=== PATIENT | male | born 1930 | race Caucasian/White ===

== ENCOUNTER → 2016-10-20 | Outpatient (CLI) | payer MEDICARE, OTHER ==
[~2016-10-20] MED LIST: ACET325T51 PO; ASPI-557 PO; DORZ10DR BOTH EYES; TRAV2.5D BOTH EYES
== END ==
LOC: NWCC 13:29
PROVIDERS: ATTEND Internal Medicine
DX: L89.323 Pressure ulcer of left buttock, stage 3 (principal); Z87.898 Personal history of other specified conditions; L53.9 Erythematous condition, unspecified; Z72.3 Lack of physical exercise
CPT/HCPCS: 11042; A6209; G0463

== ENCOUNTER → 2016-10-27 | Outpatient (CLI) | payer MEDICARE, OTHER ==
[~2016-10-27] MED LIST changes: +SALINE FLUSH 10ml SYRINGE IVF ONE
== END ==
LOC: NWCC 13:21
PROVIDERS: ATTEND Internal Medicine
DX: L89.322 Pressure ulcer of left buttock, stage 2 (principal); Z87.898 Personal history of other specified conditions; L53.9 Erythematous condition, unspecified
CPT/HCPCS: 11042; A6021; A6209

== ENCOUNTER → 2016-11-11 | Outpatient (CLI) | payer MEDICARE, OTHER ==
[~2016-11-11] MED LIST changes: -SALINE FLUSH 10ml SYRINGE IVF ONE
== END ==
LOC: NWCC 10:18
PROVIDERS: ATTEND Internal Medicine
DX: L89.323 Pressure ulcer of left buttock, stage 3 (principal); Z87.898 Personal history of other specified conditions; L53.9 Erythematous condition, unspecified

== ENCOUNTER 2017-03-04 13:45 | Inpatient (IN) ==
[2017-03-04] MEDS ORDERED: NS 1,000 ML IV ONE (14:01)
[2017-03-04] MEDS: SALINE FLUSH 10ml SYRINGE IVF PRN ×2 (14:10→20:08)
--- NOTE | 2017-03-04 14:52 | Emergency Department Report ---
General Adult HPI - General Chief complaint: Weakness Stated complaint: weakness Time Seen by Provider: 03/04/17 14:01 - History of Present Illness HPI narrative: 86-year-old gentleman with onset of weakness over the past several days. Patient has had difficulty swallowing, according to his . She is very hard of hearing, which makes medication little bit difficult. But she is very concerned about a possible reaction to Bactrim which she was prescribed 3 weeks ago for his pyelonephritis. They stopped the medication 8 days ago when this prescription ran out. And there was no reaction at that time. However the last 3 or 4 days she feels like he has had increased difficulty swallowing especially liquids. He seems to eat food okay but has been choking on water or milk. She actually gave him watermelon to try and get him to swallow liquids. He is blind in his left eye and mostly blind in the right eye, has had difficulty ambulating over the last 2 weeks, with increased weakness. The patient does interact and answer questions, he has no trouble hearing. In fact conversation's are quite lucid with him. He denies any pain, does not know if she's had a change in strength in the last couple of days, but does feel like over the last 2 weeks she's become more weak. It does not hurt to swallow, but he does choke sometimes when he swallows. This is also a new development over the last couple of weeks. - Related Data Home Medications Medication Instructions Recorded Confirmed Travoprost 0.004% Eye Drops 1 drop BOTH EYES HS #0 08/04/10 03/04/17 [Travatan Z] Dorzolamide Eye Drops [Trusopt] 1 drop BOTH EYES BID #0 11/26/14 03/04/17 Aspirin [Aspir 81] 81 mg PO DAILY #30 tab 10/19/16 03/04/17 Brimonidine Tartrate [Alphagan P] 1 drop RIGHT EYE BID 03/04/17 03/04/17 acetaZOLAMIDE [Diamox Sequels] 500 mg PO DAILY 03/04/17 03/04/17 Allergies Allergy/AdvReac Type Severity Reaction Status Date / Time NKDA Allergy Unknown Uncoded 03/04/17 14:07 Review of Systems All systems: reviewed and negative except as stated [facility] Medical History Updates: Medical history reviewed please see intake note. Surgical History: Surgical history reviewed please see intake note Family History: Positive for hypertension. - Social History Smoking status: Never smoker Substance use type: does not use Alcohol intake frequency: does not drink Current residence: Independent Living Physical Exam See below for normal exam. Patient has significant abnormal exam as well. HEENT-left eye week, this is chronic, since . Eyelid closed on left and patient does not see out of that eye. Right eye shows sluggish but appropriate dilation, with extraocular movement intact. Throat is slightly red posterior, no plaques or signs of infection. Patient denies any pain in the throat or with swallowing. Lungs-bibasilar crackles Cardiovascular-regular rate and rhythm Neuro-cranial nerves are intact with the exception of the ability to move the left eyelid which is a chronic issue. Patient is able to shrug shoulders lift arms, sales and customer relations rep strength, lift legs all with equal bilateral strength. Sensory is intact in all 4 extremities. - Limitations Limitations: other (patient is blind but can hear, is deaf but can see.) - General General appearance: alert, lethargic - Normal Exams: Cardiovascular:: Regular rate and rhythm, without murmur or gallop, Pulses 2+ all extremities Abdomen:: Bowel sounds positive, soft, non-tender, non-distended, no hepatosplenomegaly, masses or bruits noted Course Vital Signs Temperature 99.1 F 03/04/17 13:50 Pulse Rate 96 03/04/17 13:50 Respiratory Rate 24 03/04/17 13:50 Blood Pressure 150/76 H 03/04/17 13:50 Pulse Oximetry 97 03/04/17 13:50 Temperature 99.1 F 03/04/17 13:50 Pulse Rate 85 03/04/17 16:38 Respiratory Rate 24 03/04/17 13:50 Blood Pressure 124/57 03/04/17 15:56 Pulse Oximetry 100 03/04/17 15:56 Medical Decision Making - [facility] Narrative Medical decision making narrative: Labs are reviewed, CT is reviewed. CT head is negative, chest x-ray does not show any acute changes. Urine does not show any acute infection, he is currently under treatment with Bactrim DS twice daily. White count is elevated at 13.9 with left shift. Lactate is 2.1, pro calcitonin is 0.05. BNP is elevated at 1050, a UA is elevated at 32 and sodium is elevated at 155. Creatinine is normal at 0.9 Patient was given 500 ML bolus of normal saline while being evaluated in the emergency department. His home situation is not stable for him at this moment due to his illness, and he has a significant hypernatremia of 155. I expected defined and acutely septic situation and ordered blood cultures, but have not been able to document sepsis at this time. Currently, he has a significant diagnosis of hypernatremia, dehydration, dysphagia, congestive heart failure, leukocytosis, and likely continued UTI despite normal UA. Hospitalist was consulted and accepted admission of patient. - Medical Records Medical records reviewed: Yes: I reviewed the patient's medical records. - Lab Data Lab results reviewed: Yes: I reviewed the patient's lab results. Result diagrams: 03/04/17 14:46 03/04/17 14:53 Lab Results 03/04/17 03/04/17 03/04/17 Range/Units 14:46 14:46 14:53 WBC 13.9 H (4.5-11.0) T/MM3 RBC 4.62 (4.50-5.90) M/MM3 Hgb 15.3 (13.5-17.5) GM/DL Hct 47.3 (41-53) % MCV 102.4 H (80-100) UM3 MCH 33.1 (26-34) UUG MCHC 32.3 (31-37) GM/DL RDW Std Deviation 54.1 H (36.9-50.2) FL Plt Count 209 (130-400) T/MM3 MPV 9.4 (9.4-12.4) UM3 Immature Gran % (Auto) 0.4 (0.0-0.5) % Neut % (Auto) 80.2 H (33-66) % Lymph % (Auto) 10.4 L (23-45) % Burnett % (Auto) 8.2 (0-9.0) % Eos % (Auto) 0.6 (0-4) % Baso % (Auto) 0.2 (0-2) % Neut # 11.1 H (1.8-7.7) T/MM3 Lymph # 1.5 (1-4.8) T/MM3 Burnett # 1.1 H (0-0.8) T/MM3 Eos # 0.1 (0-0.5) T/MM3 Baso # 0.0 (0-0.2) T/MM3 Abs Immat Gran (auto) 0.06 H (0.00-0.03) T/MM3 INR 1.13 (0.99-1.21) Turbidity < 20 (0-20) Sodium 155 H (134-144) MEQ/L Potassium 3.9 (3.6-5) MEQ/L Chloride 113 H (98-107) MEQ/L Carbon Dioxide 29 (22-30) MEQ/L Anion Gap 13 (5-15) MEQ/L BUN 32.0 H (9-20) MG/DL Creatinine 0.9 (0.8-1.5) MG/DL GFR Calculation 80 BUN/Creatinine Ratio 36 H (6-26) RATIO Glucose 110 (75-110) MG/DL Calculated Osmolality 305 H (261-280) MOSM/KG Calcium 9.8 (8.4-10.2) MG/DL Total Bilirubin 1.40 H (0.20-1.30) MG/DL Icterus Index < 2 (0-7) AST 22 (17-59) U/L ALT 34 (21-72) U/L Alkaline Phosphatase 83 (38-126) U/L B-Natriuretic Peptide 1050 H (0-175) pg/mL Total Protein 7.2 (6.3-8.2) G/DL Albumin 4.1 (3.5-5.0) G/DL Globulin 3.1 (2.4-3.6) G/DL Albumin/Globulin Ratio 1.3 (1.1-2.2) RATIO Plasma Lactate 2.1 (0.6-2.2) MMOL/L Procalcitonin NG/ML Specimen Hemolysis < 15 (0-25) Ur Collection Type Urine Color (YELLOW) Urine Clarity Urine pH (5.0-8.0) Ur Specific [place] (1.015-1.025) Urine Protein (NEGATIVE) Urine Glucose (UA) (NEGATIVE) Urine Ketones (NEGATIVE) Urine Occult Blood (NEGATIVE) Urine Nitrate (NEGATIVE) Urine Bilirubin (NEGATIVE) Urine Urobilinogen (NORMAL) EU/DL Ur Leukocyte Esterase (NEGATIVE) Urinalysis Comment 03/04/17 03/04/17 Range/Units 14:53 15:51 WBC (4.5-11.0) T/MM3 RBC (4.50-5.90) M/MM3 Hgb (13.5-17.5) GM/DL Hct (41-53) % MCV (80-100) UM3 MCH (26-34) UUG MCHC (31-37) GM/DL RDW Std Deviation (36.9-50.2) FL Plt Count (130-400) T/MM3 MPV (9.4-12.4) UM3 Immature Gran % (Auto) (0.0-0.5) % Neut % (Auto) (33-66) % Lymph % (Auto) (23-45) % Burnett % (Auto) (0-9.0) % Eos % (Auto) (0-4) % Baso % (Auto) (0-2) % Neut # (1.8-7.7) T/MM3 Lymph # (1-4.8) T/MM3 Burnett # (0-0.8) T/MM3 Eos # (0-0.5) T/MM3 Baso # (0-0.2) T/MM3 Abs Immat Gran (auto) (0.00-0.03) T/MM3 INR (0.99-1.21) Turbidity (0-20) Sodium (134-144) MEQ/L Potassium (3.6-5) MEQ/L Chloride (98-107) MEQ/L Carbon Dioxide (22-30) MEQ/L Anion Gap (5-15) MEQ/L BUN (9-20) MG/DL Creatinine (0.8-1.5) MG/DL GFR Calculation BUN/Creatinine Ratio (6-26) RATIO Glucose (75-110) MG/DL Calculated Osmolality (261-280) MOSM/KG Calcium (8.4-10.2) MG/DL Total Bilirubin (0.20-1.30) MG/DL Icterus Index (0-7) AST (17-59) U/L ALT (21-72) U/L Alkaline Phosphatase (38-126) U/L B-Natriuretic Peptide (0-175) pg/mL Total Protein (6.3-8.2) G/DL Albumin (3.5-5.0) G/DL Globulin (2.4-3.6) G/DL Albumin/Globulin Ratio (1.1-2.2) RATIO Plasma Lactate (0.6-2.2) MMOL/L Procalcitonin < 0.05 NG/ML Specimen Hemolysis (0-25) Ur Collection Type Urine, catheter Urine Color Yellow (YELLOW) Urine Clarity Sl cloudy Urine pH 5.5 (5.0-8.0) Ur Specific [place] 1.025 (1.015-1.025) Urine Protein Negative (NEGATIVE) Urine Glucose (UA) Negative (NEGATIVE) Urine Ketones Negative (NEGATIVE) Urine Occult Blood Trace-intact (NEGATIVE) Urine Nitrate Negative (NEGATIVE) Urine Bilirubin 1+ A (NEGATIVE) Urine Urobilinogen 1.0 (NORMAL) EU/DL Ur Leukocyte Esterase Negative (NEGATIVE) Urinalysis Comment Microscopic not ind. - Radiology Data Radiology results reviewed: Yes: I reviewed the patient's radiology results. Disposition Clinical Impression: Dehydration, Leukocytosis, Hypernatremia, Congestive heart failure, Dysphasia Disposition: Discharged Home, Self-Care Condition: Stable Prescriptions: No Action Travoprost 0.004% Eye Drops [Travatan Z] 1 drop BOTH EYES HS #0 Brimonidine Tartrate [Alphagan P] 1 drop RIGHT EYE BID Dorzolamide Eye Drops [Trusopt] 1 drop BOTH EYES BID #0 Aspirin [Aspir 81] 81 mg PO DAILY #30 tab acetaZOLAMIDE [Diamox Sequels] 500 mg PO DAILY Referrals: Nick Persaud II, MD [Family Provider] - Time of Disposition: 16:47 - Seen By: physician
--- NOTE | 2017-03-04 14:55 | CT Scan Report ---
Indication: weakness PROCEDURE: CT head/brain wo con: Encounter: Initial Comparison: February 10, 2015 Technique: Axial CT images through the head were performed without contrast. Iterative Reconstruction dose reducing technique was utilized. FINDINGS: The ventricles are of normal size, shape, and contour for the patient's age. There are scattered areas of low attenuation in the white matter which most likely represent changes from chronic microvascular ischemia. The brainstem, cerebellum, and cerebral hemispheres otherwise have a normal morphology and CT attenuation. There is no evidence of midline displacement. No hemorrhage, signs of acute territorial stroke, mass effect, mass lesions, or edema is evident. The visualized portions of the skull base, midface, and calvarium demonstrate no abnormality. The paranasal sinuses are well aerated and free of significant disease. The tympanic and mastoid cavities appear normal. IMPRESSION: No acute intracranial abnormality or hemorrhage. .
--- NOTE | 2017-03-04 15:03 | XRay Report ---
INDICATION: weakness PROCEDURE: CHEST 2-VIEWS UPRIGHT (PA & LAT) Encounter: Initial COMPARISON: November 21, 2015 FINDINGS: The lungs are clear without evidence of focal abnormal airspace opacity. There is no pleural effusion or pneumothorax. The heart size, mediastinal contours and pulmonary vascularity are stable. Chronic appearing mid thoracic compression deformity. Old left posterior rib fractures. IMPRESSION: Stable chest without acute cardiopulmonary disease. .
[2017-03-04] MEDS ORDERED: D5-1/2NS 1,000 ML IV SCH (16:15)
--- NOTE | 2017-03-04 16:39 | History & Physical Report ---
<LibanDavina D - Last Filed: 03/04/17 16:35> History of Present Illness Date: 03/04/17 Chief complaint: Weakness, reduced oral intake HPI: "Sanjeev Barboza is an 86 y/o male who lives at home with his . He has had a sudden decrease in his appetite x1 week, and his reports that the only thing that he has consistently eaten is jello and watermelon. When he swallows, it's as if the food gets caught in his throat. He has become so weak that he can barely get up anymore. No recent weight loss. They both deny any falls or trauma. She states that he's had some mild underlying confusion x3 years but it hasn't been worse recently. He has poor circulation but no swelling or leg pain. On January 25, 2017, he was treated with Bactrim x14 days for a UTI (no culture); then following this Dr. Cabrera put him on a course of Diamox for increased eye pressures. Mrs. Barboza called the office and Diamox was discontinued several days ago. Jeff denies recent fever or chills, cough, congestion, dizziness, paresthesias, or unilateral weakness. He denies chest pain or SOA. He [place] to [facility] [place]. Labs showed a markedly elevated sodium at 155. CT head was unremarkable. He also had leukocytosis with WBC of 13.9. Lactate was elevated without a clear source of infection. Renal function was intact. He received 1L NS in the ED, and the hospitalist service was contacted for inpatient admission. Review of Systems Comprehensive ROS: completed and no additional positive findings except those as stated - Constitutional Constitutional: Present: as per HPI, anorexia. Absent: weight loss - EENMT Eyes: Present: loss of vision Mouth/Throat: Present: as per HPI, changes in swallowing - Cardiovascular Cardiovascular: Absent: chest pain, edema Vascular: Present: see HPI. Absent: pedal edema, unilateral swelling - Respiratory Respiratory: Absent: cough, dyspnea - Gastrointestinal Gastrointestinal: Absent: abdominal pain, change in bowel habits, constipation, diarrhea, nausea, vomiting - Genitourinary Genitourinary: Present: as per HPI (recent UTI). Absent: dysuria - Musculoskeletal Musculoskeletal: Present: as per HPI, muscle weakness - Neurological Neurological: Present: confusion (baseline), loss of vision (chronic). 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 Poe. B/L cataract extractions. Appendectomy at age 17. 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 Persaud Uro - Dr. Poe Eye - Dr. Cabrera Medications Home Medications Medication Instructions Recorded Confirmed Type Travoprost 0.004% Eye Drops 1 drop BOTH EYES HS #0 08/04/10 03/04/17 History [Travatan Z] Dorzolamide Eye Drops [Trusopt] 1 drop BOTH EYES BID #0 11/26/14 03/04/17 History Aspirin [Aspir 81] 81 mg PO DAILY #30 tab 10/19/16 03/04/17 History Brimonidine Tartrate [Alphagan P] 1 drop RIGHT EYE BID 03/04/17 03/04/17 History acetaZOLAMIDE [Diamox Sequels] 500 mg PO DAILY 03/04/17 03/04/17 History Allergies Allergy/AdvReac Type Severity Reaction Status Date / Time No Known Drug Allergies Allergy Unknown Verified 03/04/17 17:49 Exam Vital Signs: Temperature 99.1 F 03/04/17 13:50 Pulse Rate 81 03/04/17 15:56 Respiratory Rate 24 03/04/17 13:50 Blood Pressure 124/57 03/04/17 15:56 Pulse Oximetry 100 03/04/17 15:56 Oxygen Delivery Method Room Air Height/Weight/BMI: Height 1.6 m Weight 48.3 kg - Constitutional Present: mild distress, thin, cachectic, other (temporal wasting) - Routine HEENT Exam Head: Present: normocephalic ENT: Present: mucous membranes dry (extremely dry). Absent: dentition normal ( dentures - top) - Routine Neck Exam Absent: full ROM (prefers to keep neck in extension), lymphadenopathy, swelling - Routine Respiratory Exam Present: CTA bilaterally Comments: ribs are prominent - Routine Cardiovascular Exam Present: RRR, S1, S2 - Routine Abdominal Exam Present: soft, normoactive bowel sounds, non distended, non tender - Routine Extremities Exam Present: no edema, pulses intact. Absent: tenderness Comments: toenails are thickened; no hair on both lower legs/feet; hammertoes on both feet - Routine Skin Exam Present: dry, pallor, rash (rosacea to face). Absent: normal turgor (+skin tenting) - Routine Neurological Exam Present: alert, oriented X3, motor deficit (left hand weakness; difficulty with coordination on left foot/LE; very weak in general), facial asymmetry, normal speech. Absent: CN II-XII intact (loss of right nasolabial fold, tongue deviates to the right; left eye ptosis - chronic; pupils are aniscoric which is chronic), vision grossly intact - Routine Psychiatric Exam Present: normal affect, normal thought process, cooperative Results - Labs CBC & Chem 7: 03/04/17 14:46 03/04/17 14:53 Microbiology Results: Microbiology 03/04/17 15:51 Urine, Cath Straight Urine Culture - Preliminary Culture Initiated - Results Pending 03/04/17 14:47 Peripheral/Iv Start Blood Culture - Preliminary Culture Initiated - Results Pending 03/04/17 14:53 Peripheral/Iv Start Blood Culture - Preliminary Culture Initiated - Results Pending - Imaging and Cardiology Chest x-ray Status: image reviewed by me (no infiltrates, failure, or effusions. 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 Recently with positive PHQ -[address] Persaud's records. BPH Rosacea gait abnormality - at risk for falls Plan Admit to inpatient status for hypernatremia, dysphagia - LOS to exceed 2 overnights for IV hydration and prevention of further electrolyte abnormalities ; speech, PT, OT eval. Start D5 1/2 NS at 125 mL/hr for hypernatremia and dehydration. Monitor daily weights and ins/outs. Repeat BMP tonight. Consult speech therapy d/t dysphagia. When strength improves, consult PT/OT. Hx of gait instability. Consider checking lipids, echo and carotid dopplers. Continue ASA (once cleared by speech therapy). Leukocytosis and elevated lactate without clear source of infection. Possibly secondary to dehydration. Procalcitonin was normal. He does have 3 SIRS criteria , which could be explained by dehydration. qSOFA was positive for tachypnea (1/3 ). Repeat lactate, follow BC. Will hold off on abx for now. Macrocytosis - check B12 and folate levels. Suspect hgb is falsely elevated d/t hemoconcentration. Check TSH and prealbumin due to cachexia. Code status - DNR. PCP - Dr. Persaud. Plan was discussed and formulated with Dr. Tobias. - Time spent with patient 25 - 35 minutes Hospital Course Summary Disclaimer: The visit summary below is not to be considered part of the above Progress Note. Hospital Course: 03/04/17 ADMIT - start D5 1/2 NS; consult speech therapy. MRI brain ordered. Additional labs ordered. 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) gait abnormality - at risk for falls Hx of TIA; PVD; Gout; Depression; BPH; Rosacea <Fay Tobias - Last Filed: 03/04/17 18:51> History of Present Illness Date: 03/04/17 Exam Vital Signs: Temperature 97.3 F 03/04/17 17:01 Pulse Rate 80 03/04/17 17:01 Respiratory Rate 28 H 03/04/17 17:01 Blood Pressure 133/60 03/04/17 17:01 Pulse Oximetry 100 03/04/17 17:01 Oxygen Delivery Method Room Air Height/Weight/BMI: Weight 49 kg Results - Labs CBC & Chem 7: 03/04/17 14:46 03/04/17 14:53 Assessment and Plan (1) Hypernatremia Current visit: Yes Status: Acute Assessment and Plan: 03/04/2017-I reviewed this chart, the patient history, and the MAINTENANCE AND ENGINEERING MANAGER's/PA's documented findings as above. We discussed and formulated the assessment and plan as above with the additions below.-Dr. Tobias Patient was seen in his room accompanied by his . History is obtained both from the and patient. He apparently started on Diamox about 20 some days ago for increased eye pressures. The patient's stated he has not been eating or drinking well for at least the past 4 days and she called his eye doctor who stopped his Diamox. He would also had a 2 week course of Bactrim for UTI starting about 3 weeks ago. They describe that he has some difficulty with swallowing and things getting stuck in his throat. He denies any neck pain or throat pain. He occasionally has a cough but none now. He denies any headache, chest pain or abdominal pain. He denies any pain anywhere. He denies any nausea or vomiting. He has not had any diarrhea. He feels weak all over but denies any specific area of focal weakness. He is legally blind and has ptosis of the left eye which is chronic. His weight was 121 pounds one month ago and now is 108 pounds. The patient's thought he used to weigh 140 pounds. His face appears flushed but his states that is normal. Lying down he has his neck somewhat arched backward but his states that is normal. He denies any neck pain. On exam the patient is alert and in no acute distress. He is thin with temporal wasting. HEENT reveals right eye ptosis. Left eye is mildly injected. Oropharynx is very dry and he has upper dentures with whitish discharge seen especially in the tissue around the dentures. His states they have not used any cream for his dentures today. Patient denies any oral pain except for his tong. His tongue is very dry. Neck is somewhat stiff but he can move it [id number] and denies any pain. Chest is clear to auscultation anteriorly. Cardiovascular reveals a regular rate and rhythm. Abdomen is scaphoid, soft and nontender. Extremities are free of edema. Skin is warm and dry. Face is flushed but otherwise he has no erythema or rashes. CT head and chest x-ray were reviewed. Lab work was reviewed BNP is normal for age. TSH and prealbumin are pending. Sodium is 155. BUN is 32 which is elevated and creatinine is 0.9 which is likely high for his low muscle mass. Impression Dehydration with elevated sodium, likely secondary to poor by mouth intake. Because of poor by mouth intake is uncertain but could be secondary to recent medication versus acute stroke versus other. Probable acute kidney injury Plan Patient was given 1 L of normal saline in the ER. Give D5 half-normal now and recheck a sodium later tonight. The patient had a borderline elevated lactate but no signs or symptoms of infection at this time. We'll recheck a lactate and continue to monitor for signs or symptoms of infection. White count is elevated but without significant immature granulocytes. Chest x-ray and UA are negative. Vital signs are okay. MRI will be obtained to rule out acute stroke. If the patient does have a stroke will likely need further workup. Consult speech therapy to evaluate swallow. Nothing by mouth for now. Recheck CBC and basic metabolic profile tomorrow. Adjust fluids as needed. Hospital Course Summary Disclaimer: The visit summary below is not to be considered part of the above Progress Note.
--- NOTE | 2017-03-04 19:24 | Magnetic Resonance Report ---
Indication: poss stroke PROCEDURE: MR head/brain wo con: Encounter: Initial Comparisons: Head CT from today Technique: Multiplanar, multisequence, MR imaging of the head without contrast was acquired. FINDINGS: There is a tiny 4 mm focus of apparent diffusion restriction along the periventricular right posterior frontal lobe seen only on axial diffusion-weighted image #14. This lesion is not seen on the T2 or FLAIR sequences due to slice selection and slice thickness so it cannot be definitively confirmed. Motion artifact also somewhat limited the exam. The ventricles are of normal size, shape, and contour for the patient's age. There are small nonspecific punctate areas of T2-weighted and T2 FLAIR weighted signal abnormality in the deep frontoparietal white matter that most likely represent small vessel ischemic disease. This is of a degree that is considered to be normal for the patient's age. The brain stem, cerebellum, and cerebral hemispheres otherwise have a normal morphologic appearance as well as MR signal intensity on all pulse sequences. There is no evidence of an intracranial mass lesion, intracranial hemorrhage, or hydrocephalus. The visualized portions of the orbits, calvarium, paranasal sinuses, and skull base demonstrate no significant abnormality. IMPRESSION: Subtle evidence for a tiny 4 mm area of acute infarct in the periventricular right posterior frontal lobe in the MCA territory. .
[2017-03-04] MEDS: EYE RIGHT EYE SCH (20:07)
[2017-03-04] MEDS: BRIMONIDINE 0.15% RIGHT EYE SCH (20:07)
[2017-03-04] MEDS: DORZOLAMIDE 2% EYE DROPS 10ml RIGHT EYE SCH (20:07)
[2017-03-04] MEDS: TRAVOPROST 0.004% EYE DROPS 2.5ml RIGHT EYE SCH (20:07)
[2017-03-04] MEDS: D5-1/2NS with KCL 20mEq 1,000 ML IV SCH (22:48)
[2017-03-05] MEDS: D5-1/2NS with KCL 20mEq 1,000 ML IV SCH (07:36)
[2017-03-05] MEDS: EYE RIGHT EYE SCH ×2 (08:52→22:39)
[2017-03-05] MEDS: BRIMONIDINE 0.15% RIGHT EYE SCH ×2 (08:52→22:39)
[2017-03-05] MEDS: DORZOLAMIDE 2% EYE DROPS 10ml RIGHT EYE SCH ×2 (08:52→21:05)
--- NOTE | 2017-03-05 09:41 | Progress Note ---
<Davina Louie - Last Filed: 03/05/17 09:37> Subjective: Jeff was awake this morning, seen during a bed bath. He denies any acute complaints. He denies feeling short of breath or having any pain. He states he slept well last night. He still is very weak. I asked him if he could roll over on his side to facilitate listening to his lungs and evaluating his previously documented coccygeal ulcers, but he was unable to do it without assistance. Furthermore, his body was very rigid during this process. Objective Vital signs: Temperature 97.5 F 03/05/17 07:50 Pulse Rate 78 03/05/17 07:50 Respiratory Rate 14 03/05/17 07:50 Blood Pressure 138/67 03/05/17 07:50 Pulse Oximetry 98 03/05/17 07:50 Oxygen Delivery Method Room Air Height/Weight/BMI: Height 1.6 m Weight 50.3 kg Body Mass Index 19.1 - Constitutional Present: thin, cachectic - Routine HEENT Exam Eye: Absent: scleral injection ENT: Present: mucous membranes dry (very dry) - Routine Respiratory Exam Present: CTA bilaterally, diminished air movement - Routine Cardiovascular Exam Present: RRR, S1, S2 - Routine Abdominal Exam Present: soft, non distended, non tender. Absent: normoactive bowel sounds ( hypoactive) - Routine Exam Scrotal: Absent: swelling Comments: He has a couple areas of coccygeal skin breakdown. There is 1 pressure ulcer that is at least stage II, and another larger one that is stage I. - Routine Extremities Exam Present: cyanosis (mild cyanosis of both lower extremities, this was also noted and Dr. Persaud's office notes), no edema, pulses intact - Routine Back/Spine/Pelvis Exam Comments: He seems to prefer neck extension. His entire body is very rigid. He was unable to roll himself to his right side without assistance. - Routine Musculoskeletal Exam Musculoskeletal: Present: contractures (hammertoe deformities to bilateral feet) , limited range of motion - Routine Skin Exam Present: dry, warm, wounds - Routine Neurological Exam Present: alert, oriented X3 right facial droop not as noticeable today (though was mild yesterday) chronic left eye ptosis - Routine Psychiatric Exam Present: normal affect, cooperative Results - Labs CBC & Chem 7: 03/05/17 05:07 03/05/17 05:07 Assessment and Plan (1) Hypernatremia Current visit: Yes Status: Acute DVT Prophylaxis: SCD's Resuscitation Status: Do Not Resuscitate Assessment and Plan: Assessment Severe dehydration with hypernatremia, POA (Na 155) Elevated lactate, infection is not suspected - resolved Leukocytosis; macrocytosis Hypokalemia, not POA Prerenal azotemia Dysphagia Coccygeal pressure ulcers, POA Weakness, generalized Hyperbilirubinemia, mild, POA Mild PCM, prealbumin 13 Weight loss >10% of body weight - at [facility] on 01/25/17 he weighed 121 lbs. On admission here, he was 106 lbs. 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 Currently down to 152. Potassium decreased with hydration, and the telehospitalist added potassium to IV fluids. K has improved to 3.4. Clinically still looks markedly dry. If his rigidity does not improve, consider neurologic consultation. Awaiting speech therapy recommendations. Also, would recommend dietary consultation, once we know what his safest diet will be. He has mild protein calorie malnutrition. Prerenal azotemia is improving with hydration. Bilirubin actually increased slightly to 1.6. Lactate has trended down to normal, and there continues to be no evidence of infection. White count is trending down and he remains afebrile. MRI brain was obtained, and this shows a subtle irregularity that could be a small stroke to the right MCA territory, but the exam is limited by motion artifact, and this abnormality could not be confirmed on alternate images. TSH was normal at 1.10. Vitamin B12 and folate are still pending. Consult wound team for recommendations on treatment for his coccygeal pressure ulcers. Sepsis Assessment - Evaluation Sepsis screening result: No Definite Risk Hospital Course Summary Disclaimer: The visit summary below is not to be considered part of the above Progress Note. Hospital Course: 03/04/17 ADMIT - start D5 1/2 NS; consult speech therapy. MRI brain ordered. Additional labs ordered. 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 Potassium decreased with hydration, and the telehospitalist added potassium to IV fluids. K has improved to 3.4. Clinically still looks markedly dry. If his rigidity does not improve, consider neurologic consultation. Awaiting speech therapy recommendations. Also, would recommend dietary consultation, once we know what his safest diet will be. He has mild protein calorie malnutrition. Prerenal azotemia is improving with hydration. Bilirubin actually increased slightly to 1.6. Lactate has trended down to normal. MRI brain was obtained, and this shows a subtle irregularity that could be a small stroke to the right MCA territory, but the exam is limited by motion artifact, and this abnormality could not be confirmed on alternate images. TSH was normal at 1.10. Consult wound team for recommendations on treatment for his coccygeal pressure ulcers. <Fay Tobias - Last Filed: 03/05/17 14:09> Objective Vital signs: Temperature 97.5 F 03/05/17 07:50 Pulse Rate 78 03/05/17 07:50 Respiratory Rate 14 03/05/17 07:50 Blood Pressure 138/67 03/05/17 07:50 Pulse Oximetry 98 03/05/17 07:50 Oxygen Delivery Method Room Air Height/Weight/BMI: Height 1.6 m Weight 50.3 kg Body Mass Index 19.1 Results - Labs CBC & Chem 7: 03/05/17 05:07 03/05/17 05:07 Assessment and Plan (1) Hypernatremia Current visit: Yes Status: Acute Assessment and Plan: 03/05/2017-I reviewed this chart, the patient history, and the OLEOMARGARINE MAKER's/PA's documented findings as above. We discussed and formulated the assessment and plan as above with the additions below.-Dr. Tobias I saw the patient in his room earlier today. His was not present at that time, that had been in the room earlier today per the nurse. I attempted to call the patient's at home and there was no answer. The patient was sleeping on my arrival but awoke easily. He denies any pain. He denies shortness of breath. He denies any cough. He denies any complaints other than feeling hungry. On exam he appears somewhat confused. He still appears dry. He kept both of his eyes closed during my exam. Oropharynx is dry with thick white coating in the posterior pharynx. Neck is somewhat rigid but is able to move it side to side. Chest is clear to auscultation. Cardiovascular reveals a regular rate and rhythm. Abdomen is scaphoid, soft and nontender. Extremities reveal no edema. Lab work was reviewed and shows improvement in sodium and potassium since last night. Regarding the patient's severe dysphagia, speech therapy did see the patient and recommended nothing by mouth except when the patient wanted to try Magic cup. Because of prolonged time without adequate nutrition, will start PPN. I was not able to contact the patient's to discuss placing a PICC line and starting TPN. The patient refused to try Dobbhoff for GI feedings. Regarding severe weakness, will check phosphorus and magnesium. Regarding weakness and stiffness, if not improved will consult neurology. The cause of the patient's severe dysphagia is not known at this time. There is a very small subtle area seen on one view on MRI that could be an acute stroke. Other possible causes could be his dehydration, and/or hypernatremia. Other possibility is previously undiagnosed Parkinson's versus myasthenia gravis versus other. Hospital Course Summary Disclaimer: The visit summary below is not to be considered part of the above Progress Note. Addendum entered and electronically signed by Davina Louie APRN 03/05/17 12: 22: Speech therapy evaluated Jeff. He has profound oropharyngeal dysphagia and NPO diet is recommended. She recommends an alternate nutrition source at this time. I also reevaluated his mouth after oral cares - he has erythemic mucous membranes with thick white secretions vs. thrush. Will start Nystatin - nursing will brush it in his mouth QID.
[2017-03-05] MEDS: NYSTATIN 500,000 units/5 ml ORAL LIQUID PO SCH ×4 (12:17→21:36)
[2017-03-05] MEDS ORDERED: POTASSIUM PHOSPHATE IV SCH (15:15)
[2017-03-05] MEDS ORDERED: POTASSIUM ACETATE IV SCH (15:15)
[2017-03-05] MEDS ORDERED: [UNRECOGNIZED DRUG - OTHER] IV SCH (15:15)
--- NOTE | 2017-03-05 15:29 | Pharmacy Consult-TPN/PPN ---
Pharmacy Consult-TPN/PPN - Laboratory Information Chemistry Turbidity < 20 (0-20) 03/05/17 05:07 Sodium 150 MEQ/L (134-144) H 03/05/17 05:07 Potassium 3.4 MEQ/L (3.6-5) L 03/05/17 05:07 Chloride 111 MEQ/L (98-107) H 03/05/17 05:07 Carbon Dioxide 29 MEQ/L (22-30) 03/05/17 05:07 Anion Gap 10 MEQ/L (5-15) 03/05/17 05:07 BUN 19.0 MG/DL (9-20) 03/05/17 05:07 Creatinine 0.7 MG/DL (0.8-1.5) L 03/05/17 05:07 GFR Calculation 107 03/05/17 05:07 BUN/Creatinine Ratio 27 RATIO (6-26) H 03/05/17 05:07 Glucose 130 MG/DL (75-110) H 03/05/17 05:07 Calculated Osmolality 292 MOSM/KG (261-280) H 03/05/17 05:07 Calcium 8.7 MG/DL (8.4-10.2) 03/05/17 05:07 Phosphorus 2.7 MG/DL (2.5-4.5) 03/05/17 05:07 Magnesium 2.2 MG/DL (1.6-2.3) 03/05/17 05:07 Total Bilirubin 1.60 MG/DL (0.20-1.30) H 03/05/17 05:07 Icterus Index < 2 (0-7) 03/05/17 05:07 AST 23 U/L (17-59) 03/05/17 05:07 ALT 27 U/L (21-72) 03/05/17 05:07 Alkaline Phosphatase 70 U/L (38-126) 03/05/17 05:07 B-Natriuretic Peptide 1050 pg/mL (0-175) H 03/04/17 14:53 Total Protein 6.4 G/DL (6.3-8.2) 03/05/17 05:07 Albumin 3.5 G/DL (3.5-5.0) 03/05/17 05:07 Globulin 2.9 G/DL (2.4-3.6) 03/05/17 05:07 Albumin/Globulin Ratio 1.2 RATIO (1.1-2.2) 03/05/17 05:07 Prealbumin 13.0 MG/DL (17.6-36.0) L 03/04/17 18:20 Plasma Lactate 1.4 MMOL/L (0.6-2.2) 03/04/17 18:20 Procalcitonin < 0.05 NG/ML 03/04/17 14:53 TSH 1.10 MIU/L (0.47-4.68) 03/04/17 18:20 Specimen Hemolysis < 15 (0-25) 03/05/17 05:07 Intake and Output 03/04/17 03/05/17 03/06/17 06:59 06:59 06:59 Intake Total 477.083 / 1477.083 880 / 880 Balance 477.083 / 1477.083 880 / 880 Weight 49 kg 50.3 kg Intake: IV 477.083 / 477.083 880 / 880 D5-1/2NS with KCL 20mEq 1 880 / 880 ,000 ML @ 100 mls/hr IV . Q10H [facility] Rx#:[id number] D5-1/2Ns 1,000 ml @ 125 477.083 / 477.083 mls/hr IV .Q8H [facility] Rx#: [id number] Oral 0 / 0 Other: # Incontinent Voids 1 1 I have reviewed the patient's labs and I will start a PPN with NO sodium and NO chloride. I will use Potassium Acetate and Potassium Phosphate to supplement the potassium. The pharmacy will continue to monitor the nutritional needs of the patient and adjust the PPN as needed. I also ordered Fat 20% 500 ml per the pharmacy PPN Protocol. Thank you for the Protocol, Walt York [facility]
[2017-03-05] MEDS ORDERED: FAT EMULSION 20% 500 ML IV SCH (16:00)
[2017-03-05] MEDS ORDERED: FAT EMULSION 20% 500 ML BAG IV SCH (16:00)
[2017-03-05] MEDS: TRAVOPROST 0.004% EYE DROPS 2.5ml RIGHT EYE SCH (21:36)
[2017-03-06] MEDS: D5-1/2NS with KCL 20mEq 1,000 ML IV SCH (03:53)
[2017-03-06] MEDS: DORZOLAMIDE 2% EYE DROPS 10ml RIGHT EYE SCH ×2 (09:12→21:18)
[2017-03-06] MEDS: EYE RIGHT EYE SCH ×2 (09:12→21:17)
[2017-03-06] MEDS: NYSTATIN 500,000 units/5 ml ORAL LIQUID PO SCH ×4 (09:12→21:19)
[2017-03-06] MEDS: BRIMONIDINE 0.15% RIGHT EYE SCH ×2 (09:12→21:17)
--- NOTE | 2017-03-06 12:42 | Progress Note ---
<Alma Snyder - Last Filed: 03/06/17 12:37> Subjective: Reuben is seen today in follow up. He is asleep throughout my exam. His is on phone in restroom, so I was unable to visit with her. Information had to be obtained from the chart. Objective Vital signs: Temperature 98.1 F 03/06/17 07:47 Pulse Rate 88 03/06/17 08:00 Respiratory Rate 18 03/06/17 07:47 Blood Pressure 151/72 H 03/06/17 07:47 Pulse Oximetry 95 03/06/17 07:47 Oxygen Delivery Method Room Air Height/Weight/BMI: Height 1.6 m Weight 50.6 kg Body Mass Index 19.1 - Constitutional Present: no acute distress, thin, somnolent Comments: He sleeps through the exam. His head is in extended "sniffing" position while he is sleeping. - Routine HEENT Exam ENT: Present: mucous membranes dry Comments: Sleeping with mouth open - Routine Respiratory Exam Present: decreased breath sounds, CTA bilaterally, distant breath sounds ( Shallow respirations. not SOA. No appreciable crackles or wheezes. ) - Routine Cardiovascular Exam Present: RRR, S1, S2, no murmur - Routine Abdominal Exam Present: soft, non distended, non tender - Routine Extremities Exam Present: non tender. Absent: full ROM - Routine Back/Spine/Pelvis Exam Back/Spine: Absent: full ROM Comments: Patient remains stiffened, with neck extended. I did not attempt to move pt during exam. - Routine Skin Exam Present: intact, dry, warm Comments: Noted report of coccyx wounds. I was unable to assess. - Routine Neurological Exam Present: altered mental status, clonus. Absent: alert, oriented X3, CN II-XII intact, motor deficit, normal tone - Routine Psychiatric Exam Present: unable to assess. 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 Hx of TIA; PVD; Gout; Depression; BPH; Rosacea Plan: Patient continues to have altered mental status, rigidity. If persists, consider neurology consult in AM- undiagnosed Parkinson's? Stiff Person syndrome? Unable to tolerate PO, so unable to start baclofen or Sinemet for trial. Given persistent leukocytosis, I am going to start empiric Ceftriaxone. He is not acutely febrile, so less likely systemic infection or acute viral encephalopathy. Could consider spinal tap, but does not explain systemic rigidity. Family did not want to pursue TF, so PPN ongoing right now. Continue eye gtts for chronic vision concerns. Possible small stroke on MRI, but somewhat limited exam. Could consider rectal ASA if family desires more aggressive care. Repeat labs in AM for stability. Chart is reviewed for collateral information. - Time spent with patient 25 - 35 minutes Sepsis Assessment - Evaluation Sepsis screening result: No Definite Risk Hospital Course Summary Disclaimer: The visit summary below is not to be considered part of the above Progress Note. Hospital Course: 03/04/17 ADMIT - start D5 1/2 NS; consult speech therapy. MRI brain ordered. Additional labs ordered. 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 Potassium decreased with hydration, and the telehospitalist added potassium to IV fluids. K has improved to 3.4. Clinically still looks markedly dry. If his rigidity does not improve, consider neurologic consultation. Awaiting speech therapy recommendations. Also, would recommend dietary consultation, once we know what his safest diet will be. He has mild protein calorie malnutrition. Prerenal azotemia is improving with hydration. Bilirubin actually increased slightly to 1.6. Lactate has trended down to normal. MRI brain was obtained, and this shows a subtle irregularity that could be a small stroke to the right MCA territory, but the exam is limited by motion artifact, and this abnormality could not be confirmed on alternate images. TSH was normal at 1.10. Consult wound team for recommendations on treatment for his coccygeal pressure ulcers. 03/06/17 13:03 Patient continues to have altered mental status, rigidity. If persists, consider neurology consult in AM- undiagnosed Parkinson's? Stiff Person syndrome? Unable to tolerate PO, so unable to start baclofen or Sinemet for trial. Given persistent leukocytosis, I am going to start empiric Ceftriaxone. He is not acutely febrile, so less likely systemic infection or acute viral encephalopathy. Could consider spinal tap, but does not explain systemic rigidity. Family did not want to pursue TF, so PPN ongoing right now. Continue eye gtts for chronic vision concerns. Possible small stroke on MRI, but somewhat limited exam. Could consider rectal ASA if family desires more aggressive care. Repeat labs in AM for stability. Chart is reviewed for collateral information. <JatinderFay L - Last Filed: 03/07/17 07:47> Objective Vital signs: Temperature 98.7 F 03/07/17 07:00 Pulse Rate 99 03/07/17 07:00 Respiratory Rate 18 03/07/17 07:00 Blood Pressure 168/73 H 03/07/17 07:00 Pulse Oximetry 100 03/07/17 07:00 Oxygen Delivery Method Room Air Height/Weight/BMI: Height 1.6 m Weight 52.3 kg Body Mass Index 19.1 Results - Labs CBC & Chem 7: 03/07/17 04:37 03/07/17 04:37 Assessment and Plan (1) Hypernatremia Current visit: Yes Status: Acute Assessment and Plan: 03/07/2017- late entry from yesterday. I reviewed this chart, the patient history, and the TAPING MACHINE OPERATOR's/PA's documented findings as above. We discussed and formulated the assessment and plan as above with the additions below. I did see the patient yesterday accompanied by his and jose alfredo and his . The patient had his eyes closed while we talked but he was able to open his right eye on command. He has chronic left eye ptosis. He denies any pain. He specifically denies headache, neck pain and chest pain. He denies nausea. He denies shortness of breath. Voice is somewhat difficult to understand. He is still not able to eat or drink because of severe dysphagia. He has a wet sounding voice. On exam he is alert. He follows commands. He thinks he is in his living room. HEENT reveals phlegm in the back of his throat. Oropharynx is moist. He is able to move his head side to side neck is somewhat stiff. Chest is clear to auscultation bilaterally Cardiovascular reveals a regular rate and rhythm Abdomen is scaphoid, soft and nontender. Lower extremities have SCDs and he'll protectors bilaterally. He is able to move his legs on command. He is able to move his arms and hands on command. Lab was reviewed Discussed at length with the patient's and jose alfredo's . Unfortunately, the patient does not appear to be improving significantly with rehydration and normalization of his sodium. PICC line was placed and TPN was started. The cause of the patient's dysphagia, chronic sleepiness, and worsening weakness over the past 3 weeks is not known at this time. There is an equivocal lesion on MRI that could be a small acute stroke. Other possibilities include end- stage dementia versus Parkinson's versus myasthenia versus other. Will consult Dr. Villa on Tuesday. Discussed possibility of PEG tube if the patient does not improve significantly with his ability to swallow. If family decides against PEG tube, then would need to consider hospice/comfort care. Hospital Course Summary Disclaimer: The visit summary below is not to be considered part of the above Progress Note.
--- NOTE | 2017-03-06 13:11 | Pharmacy Consult-TPN/PPN ---
Pharmacy Consult-TPN/PPN - Laboratory Information Chemistry Turbidity < 20 (0-20) 03/06/17 04:36 Sodium 141 MEQ/L (134-144) D 03/06/17 04:36 Potassium 3.6 MEQ/L (3.6-5) 03/06/17 04:36 Chloride 102 MEQ/L (98-107) D 03/06/17 04:36 Carbon Dioxide 29 MEQ/L (22-30) 03/06/17 04:36 Anion Gap 10 MEQ/L (5-15) 03/06/17 04:36 BUN 17.0 MG/DL (9-20) 03/06/17 04:36 Creatinine 0.6 MG/DL (0.8-1.5) L 03/06/17 04:36 GFR Calculation 128 03/06/17 04:36 BUN/Creatinine Ratio 28 RATIO (6-26) H 03/06/17 04:36 Glucose 134 MG/DL (75-110) H 03/06/17 04:36 Glucometer 178 mg/dL (65-110) 03/06/17 05:36 Calculated Osmolality 275 MOSM/KG (261-280) 03/06/17 04:36 Calcium 8.6 MG/DL (8.4-10.2) 03/06/17 04:36 Phosphorus 2.7 MG/DL (2.5-4.5) 03/06/17 04:36 Magnesium 2.2 MG/DL (1.6-2.3) 03/05/17 05:07 Total Bilirubin 1.60 MG/DL (0.20-1.30) H 03/05/17 05:07 Icterus Index < 2 (0-7) 03/06/17 04:36 AST 23 U/L (17-59) 03/05/17 05:07 ALT 27 U/L (21-72) 03/05/17 05:07 Alkaline Phosphatase 70 U/L (38-126) 03/05/17 05:07 B-Natriuretic Peptide 1050 pg/mL (0-175) H 03/04/17 14:53 Total Protein 6.4 G/DL (6.3-8.2) 03/05/17 05:07 Albumin 3.6 G/DL (3.5-5.0) 03/06/17 04:36 Globulin 2.9 G/DL (2.4-3.6) 03/05/17 05:07 Albumin/Globulin Ratio 1.2 RATIO (1.1-2.2) 03/05/17 05:07 Prealbumin 13.0 MG/DL (17.6-36.0) L 03/04/17 18:20 Plasma Lactate 1.4 MMOL/L (0.6-2.2) 03/04/17 18:20 Procalcitonin < 0.05 NG/ML 03/04/17 14:53 TSH 1.10 MIU/L (0.47-4.68) 03/04/17 18:20 Specimen Hemolysis 50 (0-25) H 03/06/17 04:36 Intake and Output 03/05/17 03/06/17 03/07/17 06:59 06:59 06:59 Intake Total 477.083 / 0243.966 3705.67 / 1771.67 1237.333 / 1237.333 Output Total 100 / 100 50 / 50 Balance 477.083 / 6763.599 3279.67 / 1671.67 1187.333 / 1187.333 Weight 49 kg 50.3 kg 50.6 kg Intake: IV 477.083 / 883.488 1095.67 / 1771.67 1237.333 / 1237.333 D5-1/2NS with KCL 20mEq 1 1771.67 / 1771.67 ,000 ML @ 100 mls/hr IV . Q10H [facility] Rx#:[id number] D5-1/2Ns 1,000 ml @ 125 477.083 / 477.083 mls/hr IV .Q8H [facility] Rx#: [id number] Potassium Acetate Inj 40 1237.333 / 1237.333 Meq/20 ml K Phos Inj 40 Meq Magnesium Sulfate Inj 10 Meq Calcium Gluconate 9.3 Meq Infuvite Adult 10 ml Multi-Trace Elements 1 ml In Ppn - Custom Formula 2,000 ml @ 80 mls/hr IV .Q24H [facility] Rx#:[id number] Oral 0 / 0 Output: Urine 100 / 100 50 / 50 Other: # Incontinent Voids 1 1 1 - Consult Information PICC line placed today. Will convert to a standard TPN with bag change at 1600. Will add extra 50meq of potassium acetate as per previous formula. Will continue to monitor. Thank you.
[2017-03-06] MEDS: CEFTRIAXONE 1 G in NS 100 ML IV SCH (14:10)
[2017-03-06] MEDS: NS FLUSH BAG 500ml IV PRN (14:10)
[2017-03-06] MEDS ORDERED: ACETAMINOPHEN 325 MG SUPPOSITORY PR PRN (15:00)
[2017-03-06] MEDS ORDERED: ACETAMINOPHEN 650 MG SUPPOSITORY PR PRN (15:01)
[2017-03-06] MEDS: FLUCONAZOLE PB 100 MG/50 ML BAG IV SCH (15:28)
[2017-03-06] MEDS: ASPIRIN 300 MG RECTAL SUPPOSITORY RECTALLY SCH (15:28)
[2017-03-06] MEDS ORDERED: [UNRECOGNIZED DRUG - OTHER] IV SCH (16:15)
[2017-03-06] MEDS ORDERED: MULTI VIT INFUSION IV SCH (16:15)
[2017-03-06] MEDS ORDERED: MULTI TRACE ELEMENTS IV SCH (16:15)
[2017-03-06] MEDS ORDERED: POTASSIUM ACETATE IV SCH (16:15)
[2017-03-06] MEDS: FAT EMULSION 20% 100 ML IV SCH (16:43)
[2017-03-06] MEDS: MULTI VIT INFUSION IV SCH (16:43)
[2017-03-06] MEDS: POTASSIUM ACETATE IV SCH (16:43)
[2017-03-06] MEDS: [UNRECOGNIZED DRUG - OTHER] IV SCH (16:43)
[2017-03-06] MEDS: MULTI TRACE ELEMENTS IV SCH (16:43)
[2017-03-06] MEDS: TRAVOPROST 0.004% EYE DROPS 2.5ml RIGHT EYE SCH (21:18)
--- NOTE | 2017-03-07 08:45 | Pharmacy Consult-TPN/PPN ---
Pharmacy Consult-TPN/PPN - Laboratory Information Chemistry Turbidity < 20 (0-20) 03/07/17 04:37 Sodium 138 MEQ/L (134-144) 03/07/17 04:37 Potassium 3.8 MEQ/L (3.6-5) 03/07/17 04:37 Chloride 102 MEQ/L (98-107) 03/07/17 04:37 Carbon Dioxide 29 MEQ/L (22-30) 03/07/17 04:37 Anion Gap 7 MEQ/L (5-15) 03/07/17 04:37 BUN 21.0 MG/DL (9-20) H 03/07/17 04:37 Creatinine 0.6 MG/DL (0.8-1.5) L 03/07/17 04:37 GFR Calculation 128 03/07/17 04:37 BUN/Creatinine Ratio 35 RATIO (6-26) H 03/07/17 04:37 Glucose 118 MG/DL (75-110) H 03/07/17 04:37 Glucometer 142 mg/dL (65-110) 03/07/17 06:05 Calculated Osmolality 270 MOSM/KG (261-280) 03/07/17 04:37 Calcium 8.4 MG/DL (8.4-10.2) 03/07/17 04:37 Phosphorus 3.0 MG/DL (2.5-4.5) 03/07/17 04:37 Magnesium 2.1 MG/DL (1.6-2.3) 03/07/17 04:37 Total Bilirubin 1.60 MG/DL (0.20-1.30) H 03/05/17 05:07 Icterus Index < 2 (0-7) 03/07/17 04:37 AST 23 U/L (17-59) 03/05/17 05:07 ALT 27 U/L (21-72) 03/05/17 05:07 Alkaline Phosphatase 70 U/L (38-126) 03/05/17 05:07 B-Natriuretic Peptide 1050 pg/mL (0-175) H 03/04/17 14:53 Total Protein 6.4 G/DL (6.3-8.2) 03/05/17 05:07 Albumin 3.3 G/DL (3.5-5.0) L 03/07/17 04:37 Globulin 2.9 G/DL (2.4-3.6) 03/05/17 05:07 Albumin/Globulin Ratio 1.2 RATIO (1.1-2.2) 03/05/17 05:07 Prealbumin 13.0 MG/DL (17.6-36.0) L 03/04/17 18:20 Plasma Lactate 1.4 MMOL/L (0.6-2.2) 03/04/17 18:20 Vitamin B12 815 PG/ML (239-931) 03/05/17 05:07 Folate 10.2 NG/ML (2.76-20) 03/05/17 05:07 Procalcitonin < 0.05 NG/ML 03/04/17 14:53 TSH 1.10 MIU/L (0.47-4.68) 03/04/17 18:20 Specimen Hemolysis < 15 (0-25) 03/07/17 04:37 Intake and Output 03/06/17 03/07/17 03/08/17 06:59 06:59 06:59 Intake Total 1771.67 / 1771.67 1757.9989 / 1757.9989 Output Total 100 / 100 150 / 150 Balance 1671.67 / 1671.67 1607.9989 / 1607.9989 Weight 50.3 kg 50.6 kg 52.3 kg Intake: IV 1771.67 / 1771.67 1757.9989 / 1757.9989 Rocephin 1 G In Normal 100 / 100 Saline 100 ml @ 200 mls/ hr IV Q24H [facility] Rx#: [id number] D5-1/2NS with KCL 20mEq 1 1771.67 / 1771.67 ,000 ML @ 100 mls/hr IV . Q10H [facility] Rx#:[id number] Intralipid 20% 100 ml @ 100 / 100 50 mls/hr IV 1600 [facility] Rx# :[id number] DIFLUCAN PREMIX 100 mg In 50 / 50 50 ml @ 50 mls/hr IV Q24H [facility] Rx#:[id number] Potassium Acetate Inj 40 1507.9989 / 1507.9989 Meq/20 ml K Phos Inj 40 Meq Magnesium Sulfate Inj 10 Meq Calcium Gluconate 9.3 Meq Infuvite Adult 10 ml Multi-Trace Elements 1 ml In Ppn - Custom Formula 2,000 ml @ 80 mls/hr IV .Q24H [facility] Rx#:[id number] Oral 0 / 0 Output: Urine 100 / 100 150 / 150 Other: # Incontinent Voids 1 1 - Consult Information Continue current formula of TPN at 70 mls/hr. Will continue to monitor. Thank you.
[2017-03-07] MEDS: EYE RIGHT EYE SCH ×2 (09:56→22:04)
[2017-03-07] MEDS: BRIMONIDINE 0.15% RIGHT EYE SCH ×2 (09:56→22:04)
[2017-03-07] MEDS: NYSTATIN 500,000 units/5 ml ORAL LIQUID PO SCH ×4 (09:57→22:03)
[2017-03-07] MEDS: DORZOLAMIDE 2% EYE DROPS 10ml RIGHT EYE SCH ×2 (09:57→22:04)
--- NOTE | 2017-03-07 11:02 | Progress Note ---
<Davina Louie - Last Filed: 03/07/17 10:59> Subjective: Jeff was sitting in bedside chair. He mostly kept his eyes closed for conversation, but answered questions. He states he still feels very weak. He understands that he hasn't been able to swallow safely. He denies having any pain anywhere. He states that he hasn't yet worked with PT. he was not completely oriented this morning. When asked where he was, he replied "at an appointment". I had a hard time understanding his speech. When I asked him to tell me what city he was in, but finally was able to decipher [place]. He was unable to state the year. This nurse reports that he has been oriented to person and place every day except today. He has not been able to answer the year previously. Objective Vital signs: Temperature 98.7 F 03/07/17 07:00 Pulse Rate 88 03/07/17 07:50 Respiratory Rate 18 03/07/17 07:00 Blood Pressure 168/73 H 03/07/17 07:00 Pulse Oximetry 100 03/07/17 07:00 Oxygen Delivery Method Room Air Height/Weight/BMI: Height 1.6 m Weight 52.3 kg Body Mass Index 19.1 - Constitutional Present: no acute distress, thin - Routine HEENT Exam ENT: Present: mucous membranes moist. Absent: oropharynx clear (thick white colored phlegm on the roof of his mouth and posterior pharynx. This was suctioned by nursing staff.), dentition normal - Routine Respiratory Exam Present: decreased breath sounds - Routine Cardiovascular Exam Present: RRR, S1, S2 - Routine Abdominal Exam Present: soft, normoactive bowel sounds, non distended, non tender - Routine Extremities Exam Present: no edema, pulses intact - Routine Skin Exam Present: intact, erythema (to face), dry, warm - Routine Neurological Exam Present: alert. Absent: normal tone (continues to be rigid, very weak, but this is equal bilaterally.) - Routine Psychiatric Exam Present: cooperative. Absent: normal affect Results - Labs CBC & Chem 7: 03/07/17 04:37 03/07/17 04:37 Assessment and Plan (1) Hypernatremia Current visit: Yes Status: Resolved DVT Prophylaxis: SCD's GI Prophylaxis: Protonix Resuscitation Status: Do Not Resuscitate Assessment and Plan: Impression Severe dehydration with hypernatremia, POA - resolved Elevated lactate, infection is not suspected. Leukocytosis; macrocytosis. Rocephin started on 03/06/17. 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 Continue TPN through PICC. Suction oral cavity PRN. Start Protonix IV. Anticipate evaluation by Dr. Villa today. Discussed options for ongoing care with Jeff's . She is not sure if a feeding tube is the way to go, though doesn't know if she's ready for hospice ( this all came on so suddenly). Continue Rocephin day #2 for persistent leukocytosis. Blood and urine cultures remain negative after 2 days. Sepsis Assessment - Evaluation Sepsis screening result: No Definite Risk Hospital Course Summary Disclaimer: The visit summary below is not to be considered part of the above Progress Note. Hospital Course: 03/04/17 ADMIT - start D5 1/2 NS; consult speech therapy. MRI brain ordered. Additional labs ordered. 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 Potassium decreased with hydration, and the telehospitalist added potassium to IV fluids. K has improved to 3.4. Clinically still looks markedly dry. If his rigidity does not improve, consider neurologic consultation. Awaiting speech therapy recommendations. Also, would recommend dietary consultation, once we know what his safest diet will be. He has mild protein calorie malnutrition. Prerenal azotemia is improving with hydration. Bilirubin actually increased slightly to 1.6. Lactate has trended down to normal. MRI brain was obtained, and this shows a subtle irregularity that could be a small stroke to the right MCA territory, but the exam is limited by motion artifact, and this abnormality could not be confirmed on alternate images. TSH was normal at 1.10. Consult wound team for recommendations on treatment for his coccygeal pressure ulcers. 03/06/17 Patient continues to have altered mental status, rigidity. Given persistent leukocytosis, I am going to start empiric Ceftriaxone. He is not acutely febrile, so less likely systemic infection or acute viral encephalopathy. PICC line was placed and TPN was started. Possible small stroke on MRI, but somewhat limited exam. Could consider rectal ASA if family desires more aggressive care. 03/07/17 Dehydration and electrolyte abnormalities have resolved, the patient continues to have profound dysphagia and weakness. Continue TPN through PICC. Suction oral cavity PRN. Start Protonix IV. Anticipate evaluation by Dr. Villa today. Discussed options for ongoing care with Jeff's . She is not sure if a feeding tube is the way to go, though doesn't know if she's ready for hospice ( this all came on so suddenly). Continue Rocephin day #2 for persistent leukocytosis. Blood and urine cultures remain negative after 2 days. <Fay Tobias - Last Filed: 03/07/17 18:08> Objective Vital signs: Temperature 98.2 F 03/07/17 16:29 Pulse Rate 83 03/07/17 16:29 Respiratory Rate 18 03/07/17 16:29 Blood Pressure 131/69 03/07/17 16:29 Pulse Oximetry 96 03/07/17 16:29 Oxygen Delivery Method Room Air Height/Weight/BMI: Height 1.6 m Weight 52.163 kg Body Mass Index 20.3 Results - Labs CBC & Chem 7: 03/07/17 04:37 03/07/17 04:37 Assessment and Plan (1) Hypernatremia Current visit: Yes Status: Resolved Assessment and Plan: 03/07/2017-I reviewed this chart, the patient history, and the HOME SERVICE DIRECTOR's/PA's documented findings as above. We discussed and formulated the assessment and plan as above with the additions below.-Dr. Tobias The patient was seen earlier this morning and then again this afternoon. His was present this afternoon. This morning, the patient was more alert and had his eyes open. Speech was more intelligible. He was able to follow commands a little more easily today. He denied any pain. He denied shortness of breath. He denied nausea. He stated he did feel hungry. On exam he was more alert with right eye wide open and left eye open a little bit. Oropharynx revealed phlegm in the back of his throat and some white patches on his pharynx. He was able to move his neck on command. Chest is clear anteriorly. Cardiovascular reveals a regular rate and rhythm. Abdomen is soft and nontender. Extremities are free of edema. Lab shows improvement in sodium and hydration appears to be improved. Discussed with Dr. Villa today. He recommends Mestinon 1 mg IV every 8 and see if this helps with strengthening. He stated the small ischemic stroke seen on MRI is not related to his dysphagia. He recommends continuing fluids and nutrition at this point and seeing if the patient improves with Mestinon. I did return and talk with the patient's and discussed plans with her. She is in agreement at this time. Continue Rocephin for now regarding mildly elevated white count and possible occult infection. Repeat chest x-ray tomorrow. Repeat lab work tomorrow. Continue PT and OT. Hospital Course Summary Disclaimer: The visit summary below is not to be considered part of the above Progress Note.
[2017-03-07] MEDS: ASPIRIN 300 MG RECTAL SUPPOSITORY RECTALLY SCH (11:35)
[2017-03-07] MEDS ORDERED: PYRIDOSTIGMINE 10 MG/2 ML IV SCH ×2 (12:00→13:58)
[2017-03-07] MEDS: PANTOPRAZOLE 40 MG INJECTION IVP SCH (12:14)
[2017-03-07] MEDS: CEFTRIAXONE 1 G in NS 100 ML IV SCH (12:44)
[2017-03-07] MEDS: PYRIDOSTIGMINE 10 MG/2 ML IV SCH ×2 (14:52→23:05)
[2017-03-07] MEDS: FLUCONAZOLE PB 100 MG/50 ML BAG IV SCH (15:01)
[2017-03-07 15:28] VITALS: BMI 20.3
--- NOTE | 2017-03-07 15:30 | Consultation ---
DATE OF CONSULTATION 03/07/[address] Tobias PATIENT'S CHIEF COMPLAINT Generalized weakness and dysphagia. 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 The patient was started on acetazolamide on 02/03/2017. This had to be stopped after 10 days due to increased symptoms of fatigue and dysphagia and ill feeling problem. The patient had problem with ambulation and dysphagia which limited his ability to eat food. His was giving him some pureed food and milkshake to get his nutrition. He was able to use a walker for ambulation prior to this and now he is becoming bedridden. On admission, patient had a CT of the head that showed no acute abnormalities. He then had an MRI of the brain that showed a possible new small vessel ischemic stroke in the right periventricular white matter area. His lab work workup showed elevated white count without any particular signs of sepsis or infection. This can be related to his dehydration. His chemistry lab showed a very elevated sodium level which has been gradually improving since admission. Patient's condition is slightly better as per . He continued to have moderate weakness in all extremities. He was not allowed to swallow or eat per orally as per speech pathology recommendations. He has been getting TPN nutrition. 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 Patient had no symptoms of fatigue or focal weakness prior to the event prior to him being on acetazolamide. Patient had no previous history of stroke as per . PHYSICAL EXAMINATION The patient was awake, alert. He was able to answer simple questions. He was able to follow one to two step commands. He was able to open his eyes to command and squeeze fingers and move extremities to command. His speech was slow and clear. He was able to have a fair swallow effort. He had difficulty moving his tongue out of his mouth and blowing his cheeks. His motor examination in the upper extremities was in the 4-4+/5, in the lower extremities was in the 4- to 4/5. Sensory examination was symmetrical for light touch, pinprick and vibration sensation. Deep tendon reflexes were 2-/4. Plantar reflexes were equivocal bilaterally. ASSESSMENT 1. Generalized weakness, dysphagia and fatigue. This can be associated with the dehydration caused by the usage of acetazolamide. 2. Small vessel acute ischemic stroke with no particular focal neurological deficit on examination. 3. We cannot rule out chronic dementia which made the patient vulnerable for decompensation and weakness. Some of his symptoms of dementia can be pseudobulbar palsy and pseudobulbar effect. PLAN 1. Continue the usage of aspirin suppositories for stroke prevention. Start patient on Mestinon IV infusion 1 mg q.8h. This can be changed to oral medication if the patient's situation improves. This can help the patient's weakness and dementia symptoms. 2. Continue the treatment for dehydration and rule out any possible sepsis causing the white count to be elevated. 3. Physical and occupational therapy and possible rehab admission for improving motor skills and ambulatory functioning. RIAN
[2017-03-07] MEDS: POTASSIUM ACETATE IV SCH (16:29)
[2017-03-07] MEDS: [UNRECOGNIZED DRUG - OTHER] IV SCH (16:29)
[2017-03-07] MEDS: MULTI TRACE ELEMENTS IV SCH (16:29)
[2017-03-07] MEDS: MULTI VIT INFUSION IV SCH (16:29)
[2017-03-07] MEDS: FAT EMULSION 20% 100 ML IV SCH (16:29)
[2017-03-07] MEDS: TRAVOPROST 0.004% EYE DROPS 2.5ml RIGHT EYE SCH (22:04)
[2017-03-07] MEDS: ENOXAPARIN 30 MG/0.3 ML INJECTION SQ SCH (22:04)
[2017-03-07] MEDS: SALINE FLUSH 10ml SYRINGE IVF PRN (22:05)
[2017-03-08] MEDS: SALINE FLUSH 10ml SYRINGE IVF PRN ×6 (04:12→21:47)
[2017-03-08] MEDS: PYRIDOSTIGMINE 10 MG/2 ML IV SCH ×3 (06:22→21:47)
--- NOTE | 2017-03-08 08:44 | XRay Report ---
Indication: cough, elevated wbc PROCEDURE: XR chest 1V: Encounter: Initial Comparison: March 04, 2017 Findings: PICC line in place with the tip projecting over the lower SVC. The lungs are stable in appearance without new focal airspace consolidation. There is no pleural effusion or pneumothorax. The heart size, pulmonary vascularity and mediastinal contours are unchanged. IMPRESSION: New left PICC line, otherwise stable appearance of the chest. .
[2017-03-08] MEDS: PANTOPRAZOLE 40 MG INJECTION IVP SCH (08:47)
[2017-03-08] MEDS: DORZOLAMIDE 2% EYE DROPS 10ml RIGHT EYE SCH ×2 (08:48→21:30)
[2017-03-08] MEDS: BRIMONIDINE 0.15% RIGHT EYE SCH ×2 (08:48→20:41)
[2017-03-08] MEDS: EYE RIGHT EYE SCH ×2 (08:48→20:41)
[2017-03-08] MEDS: ENOXAPARIN 30 MG/0.3 ML INJECTION SQ SCH (08:48)
[2017-03-08] MEDS: ASPIRIN 300 MG RECTAL SUPPOSITORY RECTALLY SCH (08:49)
[2017-03-08] MEDS: NYSTATIN 500,000 units/5 ml ORAL LIQUID PO SCH ×4 (08:49→21:31)
[2017-03-08] MEDS: THIAMINE 200mg/2ml INJECTION IVP SCH ×2 (08:56→10:42)
--- NOTE | 2017-03-08 09:27 | Wound Care Progress Note ---
Wound Management - Patient Status Premedicated Prior to Dressing Change: No - Wound Left Sacrum Wound Type: Pressure Injury Wound Staging: Stage II (Pt is know to this clinic for this pressure injury) Length: 1 Width: 1.5 Depth: 0.1 Wound Bed Appearance: Darwin Tasha Wound Appearance: Darwin Tunneling: No Undermining: No Drainage Description: Serous Drainage Amount: Scant Drainage Odor: No Odor Dressing Status: Changed
--- NOTE | 2017-03-08 09:41 | Pharmacy Consult-TPN/PPN ---
Pharmacy Consult-TPN/PPN - Laboratory Information Chemistry Turbidity < 20 (0-20) 03/08/17 04:27 Sodium 136 MEQ/L (134-144) 03/08/17 04:27 Potassium 4.4 MEQ/L (3.6-5) 03/08/17 04:27 Chloride 101 MEQ/L (98-107) 03/08/17 04:27 Carbon Dioxide 30 MEQ/L (22-30) 03/08/17 04:27 Anion Gap 5 MEQ/L (5-15) 03/08/17 04:27 BUN 21.0 MG/DL (9-20) H 03/08/17 04:27 Creatinine 0.6 MG/DL (0.8-1.5) L 03/08/17 04:27 GFR Calculation 128 03/08/17 04:27 BUN/Creatinine Ratio 35 RATIO (6-26) H 03/08/17 04:27 Glucose 92 MG/DL (75-110) 03/08/17 04:27 Glucometer 150 mg/dL (65-110) 03/08/17 06:05 Calculated Osmolality 265 MOSM/KG (261-280) 03/08/17 04:27 Calcium 8.6 MG/DL (8.4-10.2) 03/08/17 04:27 Phosphorus 3.3 MG/DL (2.5-4.5) 03/08/17 04:27 Magnesium 2.3 MG/DL (1.6-2.3) 03/08/17 04:27 Total Bilirubin 1.60 MG/DL (0.20-1.30) H 03/05/17 05:07 Icterus Index < 2 (0-7) 03/08/17 04:27 AST 23 U/L (17-59) 03/05/17 05:07 ALT 27 U/L (21-72) 03/05/17 05:07 Alkaline Phosphatase 70 U/L (38-126) 03/05/17 05:07 B-Natriuretic Peptide 1050 pg/mL (0-175) H 03/04/17 14:53 Total Protein 6.4 G/DL (6.3-8.2) 03/05/17 05:07 Albumin 3.3 G/DL (3.5-5.0) L 03/07/17 04:37 Globulin 2.9 G/DL (2.4-3.6) 03/05/17 05:07 Albumin/Globulin Ratio 1.2 RATIO (1.1-2.2) 03/05/17 05:07 Prealbumin 13.0 MG/DL (17.6-36.0) L 03/04/17 18:20 Plasma Lactate 1.4 MMOL/L (0.6-2.2) 03/04/17 18:20 Vitamin B12 815 PG/ML (239-931) 03/05/17 05:07 Folate 10.2 NG/ML (2.76-20) 03/05/17 05:07 Procalcitonin < 0.05 NG/ML 03/04/17 14:53 TSH 1.10 MIU/L (0.47-4.68) 03/04/17 18:20 Specimen Hemolysis < 15 (0-25) 03/08/17 04:27 Intake and Output 03/07/17 03/08/17 03/09/17 06:59 06:59 06:59 Intake Total 1757.9989 / 1757.9989 1913.667 / 1913.667 Output Total 150 / 150 Balance 1607.9989 / 1607.9989 191.667 / 3.667 Weight 50.6 kg 52.163 kg 51.9 kg Intake: IV 1757.9989 / 1757.9989 1912.667 / 3.667 Rocephin 1 G In Normal 100 / 100 100 / 100 Saline 100 ml @ 200 mls/ hr IV Q24H [facility] Rx#: [id number] Intralipid 20% 100 ml @ 100 / 100 100 / 100 50 mls/hr IV 1600 [facility] Rx# :[id number] DIFLUCAN PREMIX 100 mg In 50 / 50 50 / 50 50 ml @ 50 mls/hr IV Q24H [facility] Rx#:[id number] Infuvite Adult 10 ml 1663.667 / 1663.667 Multi-Trace Elements 1 ml Potassium Acetate Inj 40 Meq/20 ml In TPN - Standard Formula 2,000 ml @ 70 mls/hr IV .Q24H [facility] Rx#:[id number] Potassium Acetate Inj 40 1507.9989 / 1507.9989 Meq/20 ml K Phos Inj 40 Meq Magnesium Sulfate Inj 10 Meq Calcium Gluconate 9.3 Meq Infuvite Adult 10 ml Multi-Trace Elements 1 ml In Ppn - Custom Formula 2,000 ml @ 80 mls/hr IV .Q24H [facility] Rx#:[id number] Oral 0 / 0 Output: Urine 150 / 150 Other: # Voids 1 # Incontinent Voids 1 1 # Bowel Movements 1 - Consult Information We will change Standard TPN formula by reducing potassium acetate to 30mEq per bag. Continue the same rate. Thanks
[2017-03-08] MEDS ORDERED: [UNRECOGNIZED DRUG - OTHER] IV SCH ×2 (09:45→16:00)
[2017-03-08] MEDS ORDERED: POTASSIUM ACETATE IV SCH ×2 (09:45→16:00)
[2017-03-08] MEDS ORDERED: MULTI VIT INFUSION IV SCH ×2 (09:45→16:00)
[2017-03-08] MEDS ORDERED: MULTI TRACE ELEMENTS IV SCH ×2 (09:45→16:00)
--- NOTE | 2017-03-08 10:55 | Progress Note ---
ATE 03/08/[address] Tobias PATIENT'S CHIEF COMPLAINT Generalized weakness and dysphagia. HISTORY OF PRESENT ILLNESS Patient continues to have diffuse weakness and fatigue. This has improved slightly with the administration of Mestinon. The patient had some mild hiccups and jerkiness yesterday after he received his Mestinon and this has improved since. Today he is more alert and he has a little bit more energy compared to yesterday's visit. His motor strength has been in the 4 to 4+ range. His speech is clearer and he is able to follow commands better. He had no other neurological problems. ASSESSMENT AND PLAN 1. Metabolic encephalopathy associated with dehydration and UTI. This has been gradually improving. 2. Generalized weakness and dysphagia most likely related to the severe dehydration associated with the usage of acetazolamide. 3. Myasthenia gravis or other myopathies are unlikely in this clinical setting. The patient has had mild improvement on the Mestinon and this should be continued. The patient can be switched to oral medication if his swallowing becomes much better. 4. Continue physical and occupational therapy and possible rehab admission. [facility]
--- NOTE | 2017-03-08 12:09 | Progress Note ---
Subjective: Jeff was resting in bed with his eyes closed but answered questions. His was also present. She reports that he just finished working with speech therapy and he did much better (was able to swallow an ice cube). She thinks he looks better and she thinks his affect is brighter. He reports that he is still weak and doesn't feel any better. His nurse reports that he wasn't as stiff today during his bed bath. Later I was able to watch him stand and ambulate ( with a lot of assistance from JALEN Jefferson) from the bed to the chair on the other side of the room. Objective Vital signs: Temperature 97.3 F 03/08/17 10:31 Pulse Rate 82 03/08/17 10:31 Respiratory Rate 16 03/08/17 10:31 Blood Pressure 155/62 H 03/08/17 10:31 Pulse Oximetry 99 03/08/17 10:31 Oxygen Delivery Method Room Air Height/Weight/BMI: Height 1.6 m Weight 51.9 kg Body Mass Index 20.3 - Constitutional Present: no acute distress - Routine HEENT Exam ENT: Present: mucous membranes moist, oropharynx clear - Routine Respiratory Exam Present: CTA bilaterally - Routine Cardiovascular Exam Present: S1, S2 - Routine Abdominal Exam Present: soft, normoactive bowel sounds, non distended, non tender - Routine Extremities Exam Present: no edema, pulses intact, normal capillary refill - Routine Skin Exam Present: intact, dry, warm, rash (rosacea - face) - Routine Neurological Exam Present: alert, moving all extremities - Routine Psychiatric Exam Absent: normal affect (weak, tired) Results - Labs CBC & Chem 7: 03/08/17 04:27 03/08/17 04:27 - Imaging and Cardiology Chest x-ray Status: image reviewed by me (No infiltrates or evidence of failure.) Assessment and Plan (1) Hypernatremia Current visit: Yes Status: Resolved Resuscitation Status: Do Not Resuscitate Assessment and Plan: ASSESSMENT Severe dehydration with hypernatremia, POA - resolved Elevated lactate, infection is not suspected. Leukocytosis; macrocytosis. Rocephin started on 03/06/17. 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 Na level is now low-normal at 136; remainder of electrolytes are stable. Hyperglycemia secondary to TPN - overall well controlled with only a couple isolated readings above 180. Continue Mestinon per Dr. Villa's recommendations. VS have been stable. Leukocytosis has resolved. Continue Rocephin day #3. CXR this am did not show evidence of pneumonia. Left PICC line was in stable position. Left sacrum wound - evaluated by wound clinic RN. Pt is known to the clinic for management of this pressure wound. Sepsis Assessment - Evaluation Sepsis screening result: No Definite Risk Hospital Course Summary Disclaimer: The visit summary below is not to be considered part of the above Progress Note. Hospital Course: 03/04/17 ADMIT - start D5 1/2 NS; consult speech therapy. MRI brain ordered. Additional labs ordered. 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 Potassium decreased with hydration, and the telehospitalist added potassium to IV fluids. K has improved to 3.4. Clinically still looks markedly dry. If his rigidity does not improve, consider neurologic consultation. Awaiting speech therapy recommendations. Also, would recommend dietary consultation, once we know what his safest diet will be. He has mild protein calorie malnutrition. Prerenal azotemia is improving with hydration. Bilirubin actually increased slightly to 1.6. Lactate has trended down to normal. MRI brain was obtained, and this shows a subtle irregularity that could be a small stroke to the right MCA territory, but the exam is limited by motion artifact, and this abnormality could not be confirmed on alternate images. TSH was normal at 1.10. Consult wound team for recommendations on treatment for his coccygeal pressure ulcers. 03/06/17 Patient continues to have altered mental status, rigidity. Given persistent leukocytosis, I am going to start empiric Ceftriaxone. He is not acutely febrile, so less likely systemic infection or acute viral encephalopathy. PICC line was placed and TPN was started. Possible small stroke on MRI, but somewhat limited exam. Could consider rectal ASA if family desires more aggressive care. 03/07/17 Dehydration and electrolyte abnormalities have resolved, the patient continues to have profound dysphagia and weakness. Continue TPN through PICC. Suction oral cavity PRN. Start Protonix IV. Anticipate evaluation by Dr. Villa today. Discussed options for ongoing care with Jeff's . She is not sure if a feeding tube is the way to go, though doesn't know if she's ready for hospice ( this all came on so suddenly). Continue Rocephin day #2 for persistent leukocytosis. Blood and urine cultures remain negative after 2 days. 03/08/17 Continue speech therapy and TPN. Na level is now low-normal at 136; remainder of electrolytes are stable. Hyperglycemia secondary to TPN - overall well controlled with only a couple isolated readings above 180. Continue Mestinon per Dr. Villa's recommendations. VS have been stable. Leukocytosis has resolved. Continue Rocephin day #3. CXR this am did not show evidence of pneumonia. Left PICC line was in stable position. Left sacrum wound - evaluated by wound clinic RN. Pt is known to the clinic for management of this pressure wound.
[2017-03-08] MEDS: CEFTRIAXONE 1 G in NS 100 ML IV SCH (13:33)
[2017-03-08] MEDS: FLUCONAZOLE PB 100 MG/50 ML BAG IV SCH (14:35)
[2017-03-08] MEDS: FAT EMULSION 20% 100 ML IV SCH (16:36)
[2017-03-08] MEDS: TRAVOPROST 0.004% EYE DROPS 2.5ml RIGHT EYE SCH (21:00)
[2017-03-09] MEDS: SALINE FLUSH 10ml SYRINGE IVF PRN ×3 (05:36→21:20)
[2017-03-09] MEDS: PYRIDOSTIGMINE 10 MG/2 ML IV SCH ×3 (05:36→21:20)
--- NOTE | 2017-03-09 08:04 | Pharmacy Consult-TPN/PPN ---
Pharmacy Consult-TPN/PPN - Laboratory Information Chemistry Turbidity < 20 (0-20) 03/09/17 05:32 Sodium 136 MEQ/L (134-144) 03/09/17 05:32 Potassium 4.8 MEQ/L (3.6-5) 03/09/17 05:32 Chloride 99 MEQ/L (98-107) 03/09/17 05:32 Carbon Dioxide 31 MEQ/L (22-30) H 03/09/17 05:32 Anion Gap 6 MEQ/L (5-15) 03/09/17 05:32 BUN 21.0 MG/DL (9-20) H 03/09/17 05:32 Creatinine 0.7 MG/DL (0.8-1.5) L 03/09/17 05:32 GFR Calculation 107 03/09/17 05:32 BUN/Creatinine Ratio 30 RATIO (6-26) H 03/09/17 05:32 Glucose 91 MG/DL (75-110) 03/09/17 05:32 Glucometer 122 mg/dL (65-110) 03/09/17 06:04 Calculated Osmolality 265 MOSM/KG (261-280) 03/09/17 05:32 Calcium 8.8 MG/DL (8.4-10.2) 03/09/17 05:32 Phosphorus 3.6 MG/DL (2.5-4.5) 03/09/17 05:32 Magnesium 2.3 MG/DL (1.6-2.3) 03/08/17 04:27 Total Bilirubin 1.60 MG/DL (0.20-1.30) H 03/05/17 05:07 Icterus Index < 2 (0-7) 03/09/17 05:32 AST 23 U/L (17-59) 03/05/17 05:07 ALT 27 U/L (21-72) 03/05/17 05:07 Alkaline Phosphatase 70 U/L (38-126) 03/05/17 05:07 B-Natriuretic Peptide 1050 pg/mL (0-175) H 03/04/17 14:53 Total Protein 6.4 G/DL (6.3-8.2) 03/05/17 05:07 Albumin 3.3 G/DL (3.5-5.0) L 03/09/17 05:32 Globulin 2.9 G/DL (2.4-3.6) 03/05/17 05:07 Albumin/Globulin Ratio 1.2 RATIO (1.1-2.2) 03/05/17 05:07 Prealbumin 13.0 MG/DL (17.6-36.0) L 03/04/17 18:20 Plasma Lactate 1.4 MMOL/L (0.6-2.2) 03/04/17 18:20 Vitamin B12 815 PG/ML (239-931) 03/05/17 05:07 Folate 10.2 NG/ML (2.76-20) 03/05/17 05:07 Procalcitonin < 0.05 NG/ML 03/04/17 14:53 TSH 1.10 MIU/L (0.47-4.68) 03/04/17 18:20 Specimen Hemolysis < 15 (0-25) 03/09/17 05:32 Intake and Output 03/08/17 03/09/17 03/10/17 06:59 06:59 06:59 Intake Total 3.667 / 6065.873 9553.334 / 2786.334 Balance 3.667 / 2987.272 0617.334 / 2786.334 Weight 52.163 kg 51.9 kg 51.9 kg Intake: IV 1913.667 / 2605.381 8557.334 / 2786.334 Rocephin 1 G In Normal 100 / 100 100 / 100 Saline 100 ml @ 200 mls/ hr IV Q24H [facility] Rx#: [id number] Intralipid 20% 100 ml @ 100 / 100 100 / 100 50 mls/hr IV 1600 [facility] Rx# :[id number] DIFLUCAN PREMIX 100 mg In 50 / 50 50 / 50 50 ml @ 50 mls/hr IV Q24H [facility] Rx#:[id number] Infuvite Adult 10 ml 1663.667 / 8207.556 1216.334 / 2536.334 Multi-Trace Elements 1 ml Potassium Acetate Inj 40 Meq/20 ml In TPN - Standard Formula 2,000 ml @ 70 mls/hr IV .Q24H [facility] Rx#:[id number] Other: # Voids 1 # Incontinent Voids 1 1 # Bowel Movements 1 # Incontinent Bowel 1 Movements - Consult Information Removed extra potassium from today's formula. Now a standard TPN at 70 mls/hr. Thank you.
[2017-03-09] MEDS: BRIMONIDINE 0.15% RIGHT EYE SCH ×2 (08:43→20:19)
[2017-03-09] MEDS: EYE RIGHT EYE SCH ×2 (08:43→20:19)
[2017-03-09] MEDS: ENOXAPARIN 30 MG/0.3 ML INJECTION SQ SCH (08:45)
[2017-03-09] MEDS: PANTOPRAZOLE 40 MG INJECTION IVP SCH (08:48)
[2017-03-09] MEDS: THIAMINE 200mg/2ml INJECTION IVP SCH (08:52)
[2017-03-09] MEDS: DORZOLAMIDE 2% EYE DROPS 10ml RIGHT EYE SCH ×2 (08:55→21:19)
[2017-03-09] MEDS: NYSTATIN 500,000 units/5 ml ORAL LIQUID PO SCH ×2 (08:57→13:14)
[2017-03-09] MEDS: ASPIRIN 300 MG RECTAL SUPPOSITORY RECTALLY SCH (08:59)
--- NOTE | 2017-03-09 11:26 | Progress Note ---
<Taty Pink V - Last Filed: 03/09/17 11:11> Subjective: Reuben is seen this morning while sleeping in bed. His is at his bedside and states she is concerned regarding his ongoing weakness. She verbalizes that 2 weeks ago he was ambulating and taking care of himself. Currently, patient is resting comfortably in bed on room air without evidence of distress. He remains NPO with TPN for nutrition. Objective Vital signs: Temperature 98.8 F 03/09/17 07:26 Pulse Rate 90 03/09/17 07:26 Respiratory Rate 16 03/09/17 07:26 Blood Pressure 141/75 H 03/09/17 07:26 Pulse Oximetry 99 03/09/17 07:26 Oxygen Delivery Method Room Air Height/Weight/BMI: Height 1.6 m Weight 51.9 kg Body Mass Index 20.3 - Constitutional Present: no acute distress, well developed, thin - Routine HEENT Exam ENT: Present: mucous membranes moist, dentition normal - Routine Respiratory Exam Present: CTA bilaterally. Absent: wheezes - Routine Cardiovascular Exam Present: RRR, S1, S2. Absent: murmur - Routine Abdominal Exam Present: soft, normoactive bowel sounds, non distended. Absent: tenderness - Routine Extremities Exam Present: no edema - Routine Skin Exam Present: intact, dry, warm - Routine Neurological Exam Sleeping - Routine Lymphatic Exam Lymphatic: Absent: adenopathy - Routine Psychiatric Exam Present: cooperative Results - Labs CBC & Chem 7: 03/09/17 05:33 03/09/17 05:32 Assessment and Plan (1) Hypernatremia Current visit: Yes Status: Resolved Assessment and Plan: ASSESSMENT Severe dehydration with hypernatremia, POA - resolved Elevated lactate, infection is not suspected. Leukocytosis; macrocytosis. Rocephin started on 03/06/17. 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 He continues on TPN for nutrition Blood sugars overall are well controlled. Continue Mestinon as recommended by Dr. Alseoudi's to help with muscle weakness. Mild Leukocytosis, Today 12.5. Today is day #4 for Rocephin. Blood cultures negative. Left sacrum wound - chronic- evaluated by wound team. Lovenox subcutaneous daily for DVT prophylaxis. Continue to encourage work with PT and OT to build up muscle strength. Overall concerning to regarding significant global climate change analyst the past 2 weeks. Sepsis Assessment - Evaluation Sepsis screening result: No Definite Risk Hospital Course Summary Disclaimer: The visit summary below is not to be considered part of the above Progress Note. Hospital Course: 03/04/17 ADMIT - start D5 1/2 NS; consult speech therapy. MRI brain ordered. Additional labs ordered. 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 Potassium decreased with hydration, and the telehospitalist added potassium to IV fluids. K has improved to 3.4. Clinically still looks markedly dry. If his rigidity does not improve, consider neurologic consultation. Awaiting speech therapy recommendations. Also, would recommend dietary consultation, once we know what his safest diet will be. He has mild protein calorie malnutrition. Prerenal azotemia is improving with hydration. Bilirubin actually increased slightly to 1.6. Lactate has trended down to normal. MRI brain was obtained, and this shows a subtle irregularity that could be a small stroke to the right MCA territory, but the exam is limited by motion artifact, and this abnormality could not be confirmed on alternate images. TSH was normal at 1.10. Consult wound team for recommendations on treatment for his coccygeal pressure ulcers. 03/06/17 Patient continues to have altered mental status, rigidity. Given persistent leukocytosis, I am going to start empiric Ceftriaxone. He is not acutely febrile, so less likely systemic infection or acute viral encephalopathy. PICC line was placed and TPN was started. Possible small stroke on MRI, but somewhat limited exam. Could consider rectal ASA if family desires more aggressive care. 03/07/17 Dehydration and electrolyte abnormalities have resolved, the patient continues to have profound dysphagia and weakness. Continue TPN through PICC. Suction oral cavity PRN. Start Protonix IV. Anticipate evaluation by Dr. Villa today. Discussed options for ongoing care with Jeff's . She is not sure if a feeding tube is the way to go, though doesn't know if she's ready for hospice ( this all came on so suddenly). Continue Rocephin day #2 for persistent leukocytosis. Blood and urine cultures remain negative after 2 days. 03/08/17 Continue speech therapy and TPN. Na level is now low-normal at 136; remainder of electrolytes are stable. Hyperglycemia secondary to TPN - overall well controlled with only a couple isolated readings above 180. Continue Mestinon per Dr. Villa's recommendations. VS have been stable. Leukocytosis has resolved. Continue Rocephin day #3. CXR this am did not show evidence of pneumonia. Left PICC line was in stable position. Left sacrum wound - evaluated by wound clinic RN. Pt is known to the clinic for management of this pressure wound. 03/09/17 PLAN Continues on TPN for nutrition, blood sugars controlled. Consulted with speech, PT and OT. Mestinon as recommended by Dr. Villa's to help with muscle weakness. <Fay Tobias - Last Filed: 03/09/17 16:24> Objective Vital signs: Temperature 96.8 F 03/09/17 12:00 Pulse Rate 91 03/09/17 12:00 Respiratory Rate 18 03/09/17 12:00 Blood Pressure 125/55 03/09/17 12:00 Pulse Oximetry 97 03/09/17 15:32 Oxygen Delivery Method Room Air Height/Weight/BMI: Height 1.6 m Weight 51.9 kg Body Mass Index 20.3 Results - Labs CBC & Chem 7: 03/09/17 05:33 03/09/17 05:32 Assessment and Plan (1) Hypernatremia Current visit: Yes Status: Resolved Assessment and Plan: 03/09/2017-I reviewed this chart, the patient history, and the ASSISTANT PRODUCT MANAGER's/PA's documented findings as above. We discussed and formulated the assessment and plan as above with the additions below.-Dr. Tobias The patient underwent modified barium swallow earlier today with speech therapist. This showed significant oropharyngeal dysphagia. Aspiration occurring secondary to pooling into the vallecula and then spillover on epiglottis secondary to epiglottis being unable to invert. The speech therapist stated that there were no exercises, modifications or compensatory strategies to assist with epiglottic inversion. She recommended continuing nothing by mouth for now and discussing feeding tube versus comfort care/hospice. The patient's was present during the modified barium swallow and speech therapist did later illustrate in the patient's room the main problems with his swallowing. I did come and talk with the patient, his , his stepson and his stepson's . I discussed with them what the speech therapist found today and her recommendations. Unfortunately, the patient's generalized weakness is not significantly improving. We discussed the options of comfort care and hospice versus PEG tube feedings. The patient's stated that at this time the patient is too weak for her to care for him at home whether or not they decide for hospice or PEG tube placement. She states in the past when he has been in a assisted he has declined and did not like being in the assisted. Due to the patient's mild dementia he is not able to make this decision himself. The patient's stated that she will call his sons who have been estranged from him and let them know of the seriousness of their dad situation and we'll discuss options with them. She plans to talk with me tomorrow. In the meantime, we will continue with TPN, Rocephin, and IV Mestinon. We'll continue PT and OT for now. Hospital Course Summary Disclaimer: The visit summary below is not to be considered part of the above Progress Note.
[2017-03-09] MEDS: CEFTRIAXONE 1 G in NS 100 ML IV SCH (13:38)
--- NOTE | 2017-03-09 14:33 | Fluoroscopy Report ---
Indication:ASPIRATION, OROPHARYNGEAL DYSPHAGIA Procedure:FL barium swallow modified MODIFIED BAR. SWALLOW STUDY: Videofluoroscopy was performed in conjunction with a sales and service representative from speech pathology and a separate report and recommendations will be provided. Thin and nectar consistencies of barium were administered. Delayed aspiration was visualized with nectar consistency barium. Immediate aspiration was noted with thin consistency. The exam was stopped at this point. No AP imaging was obtained. Impression: Aspiration with thin and nectar consistencies of barium. No other consistencies were administered. Please see the speech pathology report for additional details and recommendations. Fluoroscopy dose: 1.56 mGy (Cumulative air kerma) Alton Guadarrama RPA/ABHAY performed this under my direct supervision. .
[2017-03-09] MEDS: FLUCONAZOLE PB 100 MG/50 ML BAG IV SCH (14:42)
[2017-03-09] MEDS: MULTI-VIT INFUSION 10 ML, MULTI-TRACE ELEMENTS 1 ML in TPN - STANDARD FORMULA 2,000 ML IV SCH (16:32)
[2017-03-09] MEDS: FAT EMULSION 20% 100 ML IV SCH (16:33)
[2017-03-09] MEDS: NS FLUSH BAG 500ml IV PRN (16:37)
[2017-03-09] MEDS: TRAVOPROST 0.004% EYE DROPS 2.5ml RIGHT EYE SCH (20:36)
[2017-03-10] MEDS: PYRIDOSTIGMINE 10 MG/2 ML IV SCH ×3 (05:38→21:23)
[2017-03-10] MEDS: SALINE FLUSH 10ml SYRINGE IVF PRN ×3 (05:38→21:23)
--- NOTE | 2017-03-10 09:38 | Pharmacy Consult-TPN/PPN ---
Pharmacy Consult-TPN/PPN - Laboratory Information Chemistry Turbidity < 20 (0-20) 03/10/17 04:17 Sodium 137 MEQ/L (134-144) 03/10/17 04:17 Potassium 4.5 MEQ/L (3.6-5) 03/10/17 04:17 Chloride 99 MEQ/L (98-107) 03/10/17 04:17 Carbon Dioxide 31 MEQ/L (22-30) H 03/10/17 04:17 Anion Gap 7 MEQ/L (5-15) 03/10/17 04:17 BUN 21.0 MG/DL (9-20) H 03/10/17 04:17 Creatinine 0.7 MG/DL (0.8-1.5) L 03/10/17 04:17 GFR Calculation 107 03/10/17 04:17 BUN/Creatinine Ratio 30 RATIO (6-26) H 03/10/17 04:17 Glucose 86 MG/DL (75-110) 03/10/17 04:17 Glucometer 136 mg/dL (65-110) 03/10/17 05:44 Calculated Osmolality 266 MOSM/KG (261-280) 03/10/17 04:17 Calcium 8.9 MG/DL (8.4-10.2) 03/10/17 04:17 Phosphorus 3.6 MG/DL (2.5-4.5) 03/09/17 05:32 Magnesium 2.3 MG/DL (1.6-2.3) 03/08/17 04:27 Total Bilirubin 1.60 MG/DL (0.20-1.30) H 03/05/17 05:07 Icterus Index < 2 (0-7) 03/10/17 04:17 AST 23 U/L (17-59) 03/05/17 05:07 ALT 27 U/L (21-72) 03/05/17 05:07 Alkaline Phosphatase 70 U/L (38-126) 03/05/17 05:07 B-Natriuretic Peptide 1050 pg/mL (0-175) H 03/04/17 14:53 Total Protein 6.4 G/DL (6.3-8.2) 03/05/17 05:07 Albumin 3.3 G/DL (3.5-5.0) L 03/09/17 05:32 Globulin 2.9 G/DL (2.4-3.6) 03/05/17 05:07 Albumin/Globulin Ratio 1.2 RATIO (1.1-2.2) 03/05/17 05:07 Prealbumin 13.0 MG/DL (17.6-36.0) L 03/04/17 18:20 Plasma Lactate 1.4 MMOL/L (0.6-2.2) 03/04/17 18:20 Vitamin B12 815 PG/ML (239-931) 03/05/17 05:07 Folate 10.2 NG/ML (2.76-20) 03/05/17 05:07 Procalcitonin < 0.05 NG/ML 03/04/17 14:53 TSH 1.10 MIU/L (0.47-4.68) 03/04/17 18:20 Specimen Hemolysis < 15 (0-25) 03/10/17 04:17 Intake and Output 03/09/17 03/10/17 03/11/17 06:59 06:59 06:59 Intake Total 2786.334 / 2786.334 1727.000 / 1727.000 Balance 2786.334 / 2786.334 1727.000 / 1727.000 Weight 51.9 kg 51.9 kg 51.7 kg Intake: IV 2786.334 / 2786.334 1727.000 / 1727.000 Rocephin 1 G In Normal 100 / 100 100 / 100 Saline 100 ml @ 200 mls/ hr IV Q24H [facility] Rx#: [id number] Intralipid 20% 100 ml @ 100 / 100 100 / 100 50 mls/hr IV 1600 [facility] Rx# :[id number] DIFLUCAN PREMIX 100 mg In 50 / 50 50 / 50 50 ml @ 50 mls/hr IV Q24H [facility] Rx#:[id number] Infuvite Adult 10 ml 942.667 / 942.667 Multi-Trace Elements 1 ml In TPN - Standard Formula 2,000 ml @ 70 mls /hr IV .Q24H [facility] Rx#: [id number] Infuvite Adult 10 ml 2536.334 / 2536.334 534.333 / 534.333 Multi-Trace Elements 1 ml Potassium Acetate Inj 40 Meq/20 ml In TPN - Standard Formula 2,000 ml @ 70 mls/hr IV .Q24H [facility] Rx#:[id number] Other: Stool Color Brown Stool Consistency Soft Size of Bowel Movement Moderate # Incontinent Voids 1 1 # Incontinent Bowel 1 Movements DAY 6 OF TPN THERAPY: Receiving a STANDARD TPN via PICC line. Infusing at 70ml/hr. Plus Fat Emulsion 20% 100ml, one bag daily, to prevent EFAD and add kcal. Gives approximately 1615 kcal per day. Electrolytes very stable at this time. Blood sugar very stable, without Insulin, at this time. Will continue present formula at present rate. Thank you.
[2017-03-10] MEDS: BRIMONIDINE 0.15% RIGHT EYE SCH ×2 (09:43→20:15)
[2017-03-10] MEDS: EYE RIGHT EYE SCH ×2 (09:43→20:15)
[2017-03-10] MEDS: ENOXAPARIN 30 MG/0.3 ML INJECTION SQ SCH (09:45)
[2017-03-10] MEDS: PANTOPRAZOLE 40 MG INJECTION IVP SCH (09:46)
[2017-03-10] MEDS: THIAMINE 200mg/2ml INJECTION IVP SCH (09:47)
[2017-03-10] MEDS: DORZOLAMIDE 2% EYE DROPS 10ml RIGHT EYE SCH ×2 (09:47→21:23)
--- NOTE | 2017-03-10 11:02 | Progress Note ---
<LibanDavina D - Last Filed: 03/10/17 10:49> Subjective: Before I came in to speak with Jeff and his I watched him walk in the hallway with PT. when I returned, he has returned to his bedside chair and was resting with his eyes closed. However, he opened them and participated in conversation. While he is definitely gaining strength and stamina (his states that he walked 59 steps today), his swallowing ability has not been improving at all. We reviewed the results of his recent study and speech therapy recommendations. We discussed in depth options, including placement of a PEG tube versus hospice/comfort care. The patient was alert and oriented, and grasped the conversation. He does not believe that a PEG tube would provide him with good quality of life, and for this reason, is leaning towards comfort care. He also is not interested in going to a care home. His thinks that he understood the situation and the discussion. A son from [place] will be riding his motorcycle to discuss this further in person with his father, though she is not sure when he will arrive. Objective Vital signs: Temperature 96.3 F L 03/10/17 07:29 Pulse Rate 85 03/10/17 07:29 Respiratory Rate 18 03/10/17 07:29 Blood Pressure 125/54 03/10/17 07:29 Pulse Oximetry 98 03/10/17 07:29 Oxygen Delivery Method Room Air Height/Weight/BMI: Height 1.6 m Weight 51.7 kg Body Mass Index 20.3 - Constitutional Present: no acute distress, thin - Routine HEENT Exam ENT: Present: mucous membranes moist Comments: White residue to Mucous membranes - Routine Respiratory Exam Present: CTA bilaterally - Routine Cardiovascular Exam Present: RRR, S1, S2 - Routine Abdominal Exam Present: soft, normoactive bowel sounds, non tender - Routine Extremities Exam Present: no edema, pulses intact - Routine Skin Exam Present: dry, warm - Routine Neurological Exam Present: alert Chronic left eye ptosis - Routine Psychiatric Exam Present: normal affect, normal thought process, cooperative Results - Labs CBC & Chem 7: 03/10/17 04:17 03/10/17 04:17 Assessment and Plan (1) Hypernatremia Current visit: Yes Status: Resolved GI Prophylaxis: Protonix Resuscitation Status: Do Not Resuscitate Assessment and Plan: Assessment Severe dehydration with hypernatremia, POA (Na 155) - resolved Elevated lactate, infection is not suspected Leukocytosis; macrocytosis Significant oropharyngeal dysphagia, nothing by mouth therapeutic diet recommended. 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 The patient is leaning on comfort care/hospice rather than having a feeding tube. He will continue to think about it and talk to his and his son when he arrives. Continue Mestinon and therapy. Improvement noted. Leukocytosis has resolved. White count is 8.8. Chemistries are stable. Today's date #5 of Rocephin. We have not identified any source of infection to explain his fairly persistent leukocytosis, which has resolved. Consider discontinuing empiric antibiotics after today's dose. Will discuss in further detail with Dr. Tobias. - Time spent with patient 25 - 35 minutes Coordination of Care: >50% of visit spent providing counseling/coordination of care Sepsis Assessment - Evaluation Sepsis screening result: No Definite Risk Hospital Course Summary Disclaimer: The visit summary below is not to be considered part of the above Progress Note. Hospital Course: 03/04/17 ADMIT - start D5 1/2 NS; consult speech therapy. MRI brain ordered. Additional labs ordered. 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 Potassium decreased with hydration, and the telehospitalist added potassium to IV fluids. K has improved to 3.4. Clinically still looks markedly dry. If his rigidity does not improve, consider neurologic consultation. Awaiting speech therapy recommendations. Also, would recommend dietary consultation, once we know what his safest diet will be. He has mild protein calorie malnutrition. Prerenal azotemia is improving with hydration. Bilirubin actually increased slightly to 1.6. Lactate has trended down to normal. MRI brain was obtained, and this shows a subtle irregularity that could be a small stroke to the right MCA territory, but the exam is limited by motion artifact, and this abnormality could not be confirmed on alternate images. TSH was normal at 1.10. Consult wound team for recommendations on treatment for his coccygeal pressure ulcers. 03/06/17 Patient continues to have altered mental status, rigidity. Given persistent leukocytosis, I am going to start empiric Ceftriaxone. He is not acutely febrile, so less likely systemic infection or acute viral encephalopathy. PICC line was placed and TPN was started. Possible small stroke on MRI, but somewhat limited exam. Could consider rectal ASA if family desires more aggressive care. 03/07/17 Dehydration and electrolyte abnormalities have resolved, the patient continues to have profound dysphagia and weakness. Continue TPN through PICC. Suction oral cavity PRN. Start Protonix IV. Anticipate evaluation by Dr. Villa today. Discussed options for ongoing care with Jeff's . She is not sure if a feeding tube is the way to go, though doesn't know if she's ready for hospice ( this all came on so suddenly). Continue Rocephin day #2 for persistent leukocytosis. Blood and urine cultures remain negative after 2 days. 03/08/17 Continue speech therapy and TPN. Na level is now low-normal at 136; remainder of electrolytes are stable. Hyperglycemia secondary to TPN - overall well controlled with only a couple isolated readings above 180. Continue Mestinon per Dr. Villa's recommendations. VS have been stable. Leukocytosis has resolved. Continue Rocephin day #3. CXR this am did not show evidence of pneumonia. Left PICC line was in stable position. Left sacrum wound - evaluated by wound clinic RN. Pt is known to the clinic for management of this pressure wound. 03/09/17 PLAN Continues on TPN for nutrition, blood sugars controlled. Consulted with speech, PT and OT. Mestinon as recommended by Dr. Villa's to help with muscle weakness. 03/10/17 Extensive discussion with patient and his regarding goals of care. The patient is leaning on comfort care/hospice rather than having a feeding tube. He will continue to think about it and talk to his and his son when he arrives. Continue Mestinon and therapy. Improvement noted. Leukocytosis has resolved. White count is 8.8. Chemistries are stable. Today's date #5 of Rocephin. We have not identified any source of infection to explain his fairly persistent leukocytosis, which has resolved. Consider discontinuing empiric antibiotics after today's dose. Will discuss in further detail with Dr. Tobias. <JatinderFay - Last Filed: 03/10/17 13:44> Objective Vital signs: Temperature 96.3 F L 03/10/17 07:29 Pulse Rate 76 03/10/17 08:00 Respiratory Rate 18 03/10/17 07:29 Blood Pressure 125/54 03/10/17 07:29 Pulse Oximetry 98 03/10/17 07:29 Oxygen Delivery Method Room Air Height/Weight/BMI: Height 1.6 m Weight 51.7 kg Body Mass Index 20.3 Results - Labs CBC & Chem 7: 03/10/17 04:17 03/10/17 04:17 Assessment and Plan (1) Hypernatremia Current visit: Yes Status: Resolved Assessment and Plan: 03/10/2017-I reviewed this chart, the patient history, and the [employer]MENT's/PA's documented findings as above. We discussed and formulated the assessment and plan as above with the additions below.-Dr. Tobias Patient was seen this afternoon accompanied by his , his stepson and his stepson's . The patient was sleeping but awakens to voice. He denies any pain. He denies shortness of breath. He denies nausea. He is oriented to self only. The patient is thin and appears chronically ill. Chest is clear to auscultation bilaterally. Cardiovascular reveals a regular rate and rhythm. Abdomen is soft and nontender. Extremities are free of edema. Distal feet and toes are cool to touch and mottled with fair capillary refill. Discussed options again today with the patient, his , and his stepson. The patient's is leaning towards comfort care. Because of the patient's dementia, he does not seem able to make this decision on his own. His son is coming in from out of town, but the time of his arrival is unknown at this time. For now, we will continue with TPN for nutrition and to prevent dehydration. Continue Mestinon for strengthening. Continue PT and OT. The patient continues to be strict nothing by mouth. We'll discuss with case management. Hospital Course Summary Disclaimer: The visit summary below is not to be considered part of the above Progress Note.
[2017-03-10] MEDS: ASPIRIN 300 MG RECTAL SUPPOSITORY RECTALLY SCH (11:49)
[2017-03-10] MEDS: CEFTRIAXONE 1 G in NS 100 ML IV SCH (14:29)
[2017-03-10] MEDS: NS FLUSH BAG 500ml IV PRN (14:30)
[2017-03-10] MEDS: FLUCONAZOLE PB 100 MG/50 ML BAG IV SCH (15:23)
[2017-03-10] MEDS: MULTI-VIT INFUSION 10 ML, MULTI-TRACE ELEMENTS 1 ML in TPN - STANDARD FORMULA 2,000 ML IV SCH (16:33)
[2017-03-10] MEDS: FAT EMULSION 20% 100 ML IV SCH (16:35)
[2017-03-10] MEDS: TRAVOPROST 0.004% EYE DROPS 2.5ml RIGHT EYE SCH (20:56)
[2017-03-11] MEDS: SALINE FLUSH 10ml SYRINGE IVF PRN ×2 (05:28→22:03)
[2017-03-11] MEDS: PYRIDOSTIGMINE 10 MG/2 ML IV SCH ×3 (05:28→22:02)
--- NOTE | 2017-03-11 08:27 | Progress Note ---
<LibanDavina D - Last Filed: 03/11/17 08:23> Subjective: Jeff was still in bed but he was awake and his eyes were open. He denied any pain or acute complaints this morning. No SOA. Some of his words were very difficult to understand. He requires occasional suctioning of oral secretions. He stated that his son left [place] and he's expecting him today or tomorrow. Objective Vital signs: Temperature 96.5 F L 03/11/17 07:23 Pulse Rate 91 03/11/17 07:23 Respiratory Rate 18 03/11/17 07:23 Blood Pressure 140/74 H 03/11/17 07:23 Pulse Oximetry 96 03/11/17 07:23 Oxygen Delivery Method Room Air Height/Weight/BMI: Height 1.6 m Weight 52.3 kg Body Mass Index 20.3 - Constitutional Present: no acute distress, thin - Routine HEENT Exam Eye: Absent: PERRL (blindness) ENT: Present: mucous membranes dry - Routine Respiratory Exam Present: CTA bilaterally - Routine Cardiovascular Exam Present: RRR, S1, S2 - Routine Abdominal Exam Present: soft, normoactive bowel sounds, non distended, non tender - Routine Extremities Exam Present: no edema, pulses intact Comments: foam heel protectors b/l - Routine Musculoskeletal Exam Musculoskeletal: Present: limited range of motion - Routine Skin Exam Present: intact, dry, warm - Routine Neurological Exam Present: alert, facial asymmetry (chronic left eye ptosis). Absent: vision grossly intact (legally blind), normal speech - Routine Psychiatric Exam Present: normal affect, normal thought process, cooperative Results - Labs CBC & Chem 7: 03/10/17 04:17 03/10/17 04:17 Assessment and Plan (1) Hypernatremia Current visit: Yes Status: Resolved DVT Prophylaxis: SCD's GI Prophylaxis: Protonix Resuscitation Status: Do Not Resuscitate Assessment and Plan: Assessment Severe dehydration with hypernatremia, POA (Na 155) - resolved Elevated lactate, infection is not suspected Leukocytosis; macrocytosis Significant oropharyngeal dysphagia, nothing by mouth therapeutic diet recommended. 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 Continue Rocephin, day #6. No cause of infection has been identified. Awaiting further goals of care discussions with family. Labs not assessed today - will obtain tomorrow. Sepsis Assessment - Evaluation Sepsis screening result: No Definite Risk Hospital Course Summary Disclaimer: The visit summary below is not to be considered part of the above Progress Note. Hospital Course: 03/04/17 ADMIT - start D5 1/2 NS; consult speech therapy. MRI brain ordered. Additional labs ordered. 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 Potassium decreased with hydration, and the telehospitalist added potassium to IV fluids. K has improved to 3.4. Clinically still looks markedly dry. If his rigidity does not improve, consider neurologic consultation. Awaiting speech therapy recommendations. Also, would recommend dietary consultation, once we know what his safest diet will be. He has mild protein calorie malnutrition. Prerenal azotemia is improving with hydration. Bilirubin actually increased slightly to 1.6. Lactate has trended down to normal. MRI brain was obtained, and this shows a subtle irregularity that could be a small stroke to the right MCA territory, but the exam is limited by motion artifact, and this abnormality could not be confirmed on alternate images. TSH was normal at 1.10. Consult wound team for recommendations on treatment for his coccygeal pressure ulcers. 03/06/17 Patient continues to have altered mental status, rigidity. Given persistent leukocytosis, I am going to start empiric Ceftriaxone. He is not acutely febrile, so less likely systemic infection or acute viral encephalopathy. PICC line was placed and TPN was started. Possible small stroke on MRI, but somewhat limited exam. Could consider rectal ASA if family desires more aggressive care. 03/07/17 Dehydration and electrolyte abnormalities have resolved, the patient continues to have profound dysphagia and weakness. Continue TPN through PICC. Suction oral cavity PRN. Start Protonix IV. Anticipate evaluation by Dr. Villa today. Discussed options for ongoing care with Jeff's . She is not sure if a feeding tube is the way to go, though doesn't know if she's ready for hospice ( this all came on so suddenly). Continue Rocephin day #2 for persistent leukocytosis. Blood and urine cultures remain negative after 2 days. 03/08/17 Continue speech therapy and TPN. Na level is now low-normal at 136; remainder of electrolytes are stable. Hyperglycemia secondary to TPN - overall well controlled with only a couple isolated readings above 180. Continue Mestinon per Dr. Villa's recommendations. VS have been stable. Leukocytosis has resolved. Continue Rocephin day #3. CXR this am did not show evidence of pneumonia. Left PICC line was in stable position. Left sacrum wound - evaluated by wound clinic RN. Pt is known to the clinic for management of this pressure wound. 03/09/17 PLAN Continues on TPN for nutrition, blood sugars controlled. Consulted with speech, PT and OT. Mestinon as recommended by Dr. Villa's to help with muscle weakness. 03/10/17 Extensive discussion with patient and his regarding goals of care. The patient is leaning on comfort care/hospice rather than having a feeding tube. He will continue to think about it and talk to his and his son when he arrives. Continue Mestinon and therapy. Improvement noted. Leukocytosis has resolved. White count is 8.8. Chemistries are stable. Today's date #5 of Rocephin. We have not identified any source of infection to explain his fairly persistent leukocytosis, which has resolved. Consider discontinuing empiric antibiotics after today's dose. Will discuss in further detail with Dr. Tobias. <Fan Loya - Last Filed: 03/11/17 16:40> Objective Vital signs: Temperature 97.0 F 03/11/17 16:07 Pulse Rate 82 03/11/17 16:07 Respiratory Rate 20 03/11/17 16:07 Blood Pressure 125/65 03/11/17 16:07 Pulse Oximetry 98 03/11/17 16:07 Oxygen Delivery Method Room Air Height/Weight/BMI: Height 1.6 m Weight 52.3 kg Body Mass Index 20.3 Results - Labs CBC & Chem 7: 03/10/17 04:17 03/10/17 04:17 Assessment and Plan (1) Hypernatremia Current visit: Yes Status: Resolved Assessment and Plan: Assessment Severe dehydration with hypernatremia, POA (Na 155) - resolved Elevated lactate, infection is not suspected Leukocytosis; macrocytosis Significant oropharyngeal dysphagia, nothing by mouth therapeutic diet recommended. 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 Chart reviewed. Case discussed with CM and my FOUNDATION COORDINATOR. Care plan developed with my supervision; agree with above. Doing okay today. Resting in bed, but wake and alert. Did walk with therapy earlier today. Breathing well-not coughing or having SOA/congestion. Denies pain. No nausea or ab pain. Not able to take oral due to severe dysphagia. Lungs: decreased, no crackles/wheezes/distress CV: regular AB: soft nt/nd +BS MSE: awake alert Plan: Continue TPN for nutritional support. meeting with [facility] to discuss possible hospice-leaning towards this but has not made decision for hospice vs attempting feeding tube. Hospice very reasonable in light of patient's underlying dementia and decrease quality of life. Hospital Course Summary Disclaimer: The visit summary below is not to be considered part of the above Progress Note.
--- NOTE | 2017-03-11 08:40 | Pharmacy Consult-TPN/PPN ---
Pharmacy Consult-TPN/PPN - Laboratory Information Chemistry Turbidity < 20 (0-20) 03/10/17 04:17 Sodium 137 MEQ/L (134-144) 03/10/17 04:17 Potassium 4.5 MEQ/L (3.6-5) 03/10/17 04:17 Chloride 99 MEQ/L (98-107) 03/10/17 04:17 Carbon Dioxide 31 MEQ/L (22-30) H 03/10/17 04:17 Anion Gap 7 MEQ/L (5-15) 03/10/17 04:17 BUN 21.0 MG/DL (9-20) H 03/10/17 04:17 Creatinine 0.7 MG/DL (0.8-1.5) L 03/10/17 04:17 GFR Calculation 107 03/10/17 04:17 BUN/Creatinine Ratio 30 RATIO (6-26) H 03/10/17 04:17 Glucose 86 MG/DL (75-110) 03/10/17 04:17 Glucometer 131 mg/dL (65-110) 03/11/17 06:02 Calculated Osmolality 266 MOSM/KG (261-280) 03/10/17 04:17 Calcium 8.9 MG/DL (8.4-10.2) 03/10/17 04:17 Phosphorus 3.6 MG/DL (2.5-4.5) 03/09/17 05:32 Magnesium 2.3 MG/DL (1.6-2.3) 03/08/17 04:27 Total Bilirubin 1.60 MG/DL (0.20-1.30) H 03/05/17 05:07 Icterus Index < 2 (0-7) 03/10/17 04:17 AST 23 U/L (17-59) 03/05/17 05:07 ALT 27 U/L (21-72) 03/05/17 05:07 Alkaline Phosphatase 70 U/L (38-126) 03/05/17 05:07 B-Natriuretic Peptide 1050 pg/mL (0-175) H 03/04/17 14:53 Total Protein 6.4 G/DL (6.3-8.2) 03/05/17 05:07 Albumin 3.3 G/DL (3.5-5.0) L 03/09/17 05:32 Globulin 2.9 G/DL (2.4-3.6) 03/05/17 05:07 Albumin/Globulin Ratio 1.2 RATIO (1.1-2.2) 03/05/17 05:07 Prealbumin 13.0 MG/DL (17.6-36.0) L 03/04/17 18:20 Plasma Lactate 1.4 MMOL/L (0.6-2.2) 03/04/17 18:20 Vitamin B12 815 PG/ML (239-931) 03/05/17 05:07 Folate 10.2 NG/ML (2.76-20) 03/05/17 05:07 Procalcitonin < 0.05 NG/ML 03/04/17 14:53 TSH 1.10 MIU/L (0.47-4.68) 03/04/17 18:20 Specimen Hemolysis < 15 (0-25) 03/10/17 04:17 Intake and Output 03/10/17 03/11/17 03/12/17 06:59 06:59 06:59 Intake Total 1727.000 / 1727.000 846.166 / 846.166 Balance 1727.000 / 1727.000 846.166 / 846.166 Weight 51.9 kg 51.7 kg 52.3 kg Intake: IV 1727.000 / 1727.000 846.166 / 846.166 Rocephin 1 G In Normal 100 / 100 100 / 100 Saline 100 ml @ 200 mls/ hr IV Q24H [facility] Rx#: [id number] Intralipid 20% 100 ml @ 100 / 100 100 / 100 50 mls/hr IV 1600 [facility] Rx# :[id number] DIFLUCAN PREMIX 100 mg In 50 / 50 50 / 50 50 ml @ 50 mls/hr IV Q24H [facility] Rx#:[id number] Infuvite Adult 10 ml 942.667 / 942.667 596.166 / 596.166 Multi-Trace Elements 1 ml In TPN - Standard Formula 2,000 ml @ 70 mls /hr IV .Q24H [facility] Rx#: [id number] Infuvite Adult 10 ml 534.333 / 534.333 Multi-Trace Elements 1 ml Potassium Acetate Inj 40 Meq/20 ml In TPN - Standard Formula 2,000 ml @ 70 mls/hr IV .Q24H [facility] Rx#:[id number] Other: # Incontinent Voids 1 1 - Consult Information Will continue standard TPN formula at 70 mls/hr. CMP, phos and mag levels ordered for tomorrow. Will continue to follow. Thank you.
[2017-03-11] MEDS: EYE RIGHT EYE SCH ×2 (08:58→20:25)
[2017-03-11] MEDS: BRIMONIDINE 0.15% RIGHT EYE SCH ×2 (08:58→20:25)
[2017-03-11] MEDS: ENOXAPARIN 30 MG/0.3 ML INJECTION SQ SCH (08:59)
[2017-03-11] MEDS: PANTOPRAZOLE 40 MG INJECTION IVP SCH (08:59)
[2017-03-11] MEDS: THIAMINE 200mg/2ml INJECTION IVP SCH (09:00)
[2017-03-11] MEDS: DORZOLAMIDE 2% EYE DROPS 10ml RIGHT EYE SCH ×2 (09:00→21:09)
[2017-03-11] MEDS: ASPIRIN 300 MG RECTAL SUPPOSITORY RECTALLY SCH (11:56)
[2017-03-11] MEDS: CEFTRIAXONE 1 G in NS 100 ML IV SCH (13:01)
[2017-03-11] MEDS: FLUCONAZOLE PB 100 MG/50 ML BAG IV SCH (15:08)
[2017-03-11] MEDS: MULTI-VIT INFUSION 10 ML, MULTI-TRACE ELEMENTS 1 ML in TPN - STANDARD FORMULA 2,000 ML IV SCH (16:35)
[2017-03-11] MEDS: FAT EMULSION 20% 100 ML IV SCH (16:36)
[2017-03-11] MEDS: TRAVOPROST 0.004% EYE DROPS 2.5ml RIGHT EYE SCH (22:02)
[2017-03-12] MEDS: PYRIDOSTIGMINE 10 MG/2 ML IV SCH ×3 (05:02→21:11)
[2017-03-12] MEDS: SALINE FLUSH 10ml SYRINGE IVF PRN (05:03)
[2017-03-12] MEDS: PANTOPRAZOLE 40 MG INJECTION IVP SCH (08:13)
[2017-03-12] MEDS: DORZOLAMIDE 2% EYE DROPS 10ml RIGHT EYE SCH ×2 (08:13→20:32)
[2017-03-12] MEDS: EYE RIGHT EYE SCH ×2 (08:13→21:12)
[2017-03-12] MEDS: BRIMONIDINE 0.15% RIGHT EYE SCH ×2 (08:13→21:12)
[2017-03-12] MEDS: ENOXAPARIN 30 MG/0.3 ML INJECTION SQ SCH (08:14)
[2017-03-12] MEDS: THIAMINE 200mg/2ml INJECTION IVP SCH (08:15)
[2017-03-12] MEDS: ASPIRIN 300 MG RECTAL SUPPOSITORY RECTALLY SCH (08:16)
--- NOTE | 2017-03-12 08:46 | Pharmacy Consult-TPN/PPN ---
Pharmacy Consult-TPN/PPN - Laboratory Information Chemistry Turbidity < 20 (0-20) 03/12/17 04:19 Sodium 138 MEQ/L (134-144) 03/12/17 04:19 Potassium 4.2 MEQ/L (3.6-5) 03/12/17 04:19 Chloride 101 MEQ/L (98-107) 03/12/17 04:19 Carbon Dioxide 28 MEQ/L (22-30) 03/12/17 04:19 Anion Gap 9 MEQ/L (5-15) 03/12/17 04:19 BUN 23.0 MG/DL (9-20) H 03/12/17 04:19 Creatinine 0.7 MG/DL (0.8-1.5) L 03/12/17 04:19 GFR Calculation 107 03/12/17 04:19 BUN/Creatinine Ratio 33 RATIO (6-26) H 03/12/17 04:19 Glucose 124 MG/DL (75-110) H 03/12/17 04:19 Glucometer 151 mg/dL (65-110) 03/12/17 06:02 Calculated Osmolality 271 MOSM/KG (261-280) 03/12/17 04:19 Calcium 8.8 MG/DL (8.4-10.2) 03/12/17 04:19 Phosphorus 4.3 MG/DL (2.5-4.5) 03/12/17 04:19 Magnesium 2.3 MG/DL (1.6-2.3) 03/12/17 04:19 Total Bilirubin 0.70 MG/DL (0.20-1.30) 03/12/17 04:19 Icterus Index < 2 (0-7) 03/12/17 04:19 AST 37 U/L (17-59) 03/12/17 04:19 ALT 47 U/L (21-72) 03/12/17 04:19 Alkaline Phosphatase 69 U/L (38-126) 03/12/17 04:19 B-Natriuretic Peptide 1050 pg/mL (0-175) H 03/04/17 14:53 Total Protein 6.5 G/DL (6.3-8.2) 03/12/17 04:19 Albumin 3.2 G/DL (3.5-5.0) L 03/12/17 04:19 Globulin 3.3 G/DL (2.4-3.6) 03/12/17 04:19 Albumin/Globulin Ratio 1.0 RATIO (1.1-2.2) L 03/12/17 04:19 Prealbumin 13.0 MG/DL (17.6-36.0) L 03/04/17 18:20 Plasma Lactate 1.4 MMOL/L (0.6-2.2) 03/04/17 18:20 Vitamin B12 815 PG/ML (239-931) 03/05/17 05:07 Folate 10.2 NG/ML (2.76-20) 03/05/17 05:07 Procalcitonin < 0.05 NG/ML 03/04/17 14:53 TSH 1.10 MIU/L (0.47-4.68) 03/04/17 18:20 Specimen Hemolysis < 15 (0-25) 03/12/17 04:19 Intake and Output 03/11/17 03/12/17 03/13/17 06:59 06:59 06:59 Intake Total 846.166 / 406.673 7154.333 / 1603.333 Output Total 100 / 100 Balance 846.166 / 298.743 1802.333 / 1503.333 Weight 51.7 kg 52.3 kg 51.936 kg Intake: IV 846.166 / 816.713 7745.333 / 1603.333 Rocephin 1 G In Normal 100 / 100 100 / 100 Saline 100 ml @ 200 mls/ hr IV Q24H [facility] Rx#: [id number] Intralipid 20% 100 ml @ 100 / 100 100 / 100 50 mls/hr IV 1600 [facility] Rx# :[id number] DIFLUCAN PREMIX 100 mg In 50 / 50 50 / 50 50 ml @ 50 mls/hr IV Q24H [facility] Rx#:[id number] Infuvite Adult 10 ml 596.166 / 894.076 0013.333 / 1353.333 Multi-Trace Elements 1 ml In TPN - Standard Formula 2,000 ml @ 70 mls /hr IV .Q24H [facility] Rx#: [id number] Output: Urine 100 / 100 Other: Urine Appearance Clear Urine Color Dark Yellow # Incontinent Voids 1 1 1 - Consult Information We will continue same TPN formula and rate. Thanks
[2017-03-12] MEDS: CEFTRIAXONE 1 G in NS 100 ML IV SCH (13:24)
[2017-03-12] MEDS: FLUCONAZOLE PB 100 MG/50 ML BAG IV SCH (14:32)
--- NOTE | 2017-03-12 15:06 | Progress Note ---
<Alma Snyder - Last Filed: 03/12/17 15:02> Subjective: Reuben is seen in follow up. and other family members at bedside. He looks remarkably better from my previous visit last week. He is very alert, answers questions appropriately. Joking with me. Mouth is dry, as he remains NPO. Reports no pain at all. Denies any other concerns. Objective Vital signs: Temperature 97.2 F 03/12/17 12:35 Pulse Rate 85 03/12/17 12:35 Respiratory Rate 20 03/12/17 12:35 Blood Pressure 115/68 03/12/17 12:35 Pulse Oximetry 97 03/12/17 12:35 Oxygen Delivery Method Room Air Height/Weight/BMI: Height 1.6 m Weight 51.936 kg Body Mass Index 20.3 - Constitutional Present: no acute distress, thin, cooperative - Routine HEENT Exam Head: Present: normocephalic, atraumatic Eye: Present: EOMI, normal accommodation ENT: Present: mucous membranes dry. Absent: dentition normal - Routine Respiratory Exam Present: CTA bilaterally, distant breath sounds. Absent: accessory muscle use, dyspnea, rales, rhonchi, wheezes, crackles - Routine Cardiovascular Exam Present: RRR, S1, S2, no murmur - Routine Abdominal Exam Present: soft, normoactive bowel sounds, non distended, non tender - Routine Extremities Exam Present: no edema, non tender - Routine Musculoskeletal Exam Musculoskeletal: Present: no clubbing or cyanosis, limited range of motion ( Very weak. ) - Routine Skin Exam Present: dry, warm - Routine Neurological Exam Present: alert, normal speech - Routine Psychiatric Exam Present: normal affect, cooperative Results - Labs CBC & Chem 7: 03/12/17 04:19 03/12/17 04:19 Assessment and Plan (1) Hypernatremia Current visit: Yes Status: Resolved DVT Prophylaxis: SCD's GI Prophylaxis: Protonix Resuscitation Status: Do Not Resuscitate Assessment and Plan: Assessment Severe dehydration with hypernatremia, POA (Na 155) - resolved Elevated lactate- Empiric Ceftriaxone x 7 days with improvement. Leukocytosis; macrocytosis Significant oropharyngeal dysphagia, nothing by mouth therapeutic diet recommended. 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 dementia Plan: 03/12/17 Patient continues slow improvements. Will DC ceftriaxone after today's dose (d#7). All cultures negative. Mestinon to be continued due to improvements in weakness per Dr. Garcai's recommendations. Unlikely to be MS or MG, but reasonable to continue therapy given improvement. Pt. continues to demonstrate significant dysphagia- plan of care being discussed is PEG vs. Hospice. Could repeat swallow eval on Tuesday to see if there is any improvement. Continue Rectal ASA given concern for stroke. Continue PT/OT. Await son to arrive for further plan of care discussion. IV nystatin for thrush- consider DC soon? (d#7). - Time spent with patient 25 - 35 minutes Sepsis Assessment - Evaluation Sepsis screening result: No Definite Risk Hospital Course Summary Disclaimer: The visit summary below is not to be considered part of the above Progress Note. Hospital Course: 03/04/17 ADMIT - start D5 1/ NS; consult speech therapy. MRI brain ordered. Additional labs ordered. 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 Potassium decreased with hydration, and the telehospitalist added potassium to IV fluids. K has improved to 3.4. Clinically still looks markedly dry. If his rigidity does not improve, consider neurologic consultation. Awaiting speech therapy recommendations. Also, would recommend dietary consultation, once we know what his safest diet will be. He has mild protein calorie malnutrition. Prerenal azotemia is improving with hydration. Bilirubin actually increased slightly to 1.6. Lactate has trended down to normal. MRI brain was obtained, and this shows a subtle irregularity that could be a small stroke to the right MCA territory, but the exam is limited by motion artifact, and this abnormality could not be confirmed on alternate images. TSH was normal at 1.10. Consult wound team for recommendations on treatment for his coccygeal pressure ulcers. 03/06/17 Patient continues to have altered mental status, rigidity. Given persistent leukocytosis, I am going to start empiric Ceftriaxone. He is not acutely febrile, so less likely systemic infection or acute viral encephalopathy. PICC line was placed and TPN was started. Possible small stroke on MRI, but somewhat limited exam. Could consider rectal ASA if family desires more aggressive care. 03/07/17 Dehydration and electrolyte abnormalities have resolved, the patient continues to have profound dysphagia and weakness. Continue TPN through PICC. Suction oral cavity PRN. Start Protonix IV. Anticipate evaluation by Dr. Villa today. Discussed options for ongoing care with [facility] . She is not sure if a feeding tube is the way to go, though doesn't know if she's ready for hospice ( this all came on so suddenly). Continue Rocephin day #2 for persistent leukocytosis. Blood and urine cultures remain negative after 2 days. 03/08/17 Continue speech therapy and TPN. Na level is now low-normal at 136; remainder of electrolytes are stable. Hyperglycemia secondary to TPN - overall well controlled with only a couple isolated readings above 180. Continue Mestinon per Dr. Villa's recommendations. VS have been stable. Leukocytosis has resolved. Continue Rocephin day #3. CXR this am did not show evidence of pneumonia. Left PICC line was in stable position. Left sacrum wound - evaluated by wound clinic RN. Pt is known to the clinic for management of this pressure wound. 03/09/17 PLAN Continues on TPN for nutrition, blood sugars controlled. Consulted with speech, PT and OT. Mestinon as recommended by Dr. Villa's to help with muscle weakness. 03/10/17 Extensive discussion with patient and his regarding goals of care. The patient is leaning on comfort care/hospice rather than having a feeding tube. He will continue to think about it and talk to his and his son when he arrives. Continue Mestinon and therapy. Improvement noted. Leukocytosis has resolved. White count is 8.8. Chemistries are stable. Today's date #5 of Rocephin. We have not identified any source of infection to explain his fairly persistent leukocytosis, which has resolved. Consider discontinuing empiric antibiotics after today's dose. Will discuss in further detail with Dr. Tobias. 03/12/17 15:11 Patient continues slow improvements. Will DC ceftriaxone after today's dose (d#7). All cultures negative. Mestinon to be continued due to improvements in weakness per Dr. Garcia's recommendations. Unlikely to be MS or MG, but reasonable to continue therapy given improvement. Pt. continues to demonstrate significant dysphagia- plan of care being discussed is PEG vs. Hospice. Could repeat swallow eval on Tuesday to see if there is any improvement. Continue Rectal ASA given concern for stroke. Continue PT/OT. Await son to arrive for further plan of care discussion. IV nystatin for thrush- consider DC soon? (d#7). <aFn Loya D - Last Filed: 03/12/17 18:04> Objective Vital signs: Temperature 97.5 F 03/12/17 15:43 Pulse Rate 83 03/12/17 16:00 Respiratory Rate 20 03/12/17 15:43 Blood Pressure 145/69 H 03/12/17 15:43 Pulse Oximetry 98 03/12/17 16:14 Oxygen Delivery Method Room Air Height/Weight/BMI: Height 1.6 m Weight 51.936 kg Body Mass Index 20.3 Results - Labs CBC & Chem 7: 03/12/17 04:19 03/12/17 04:19 Assessment and Plan (1) Hypernatremia Current visit: Yes Status: Resolved Assessment and Plan: Assessment Severe dehydration with hypernatremia, POA (Na 155) - resolved Elevated lactate- Empiric Ceftriaxone x 7 days with improvement. Leukocytosis; macrocytosis Significant oropharyngeal dysphagia, nothing by mouth therapeutic diet recommended. 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 dementia Have independently interviewed and examined pt. Chart reviewed. Cased discussed with nursing, CM, my ARRN, and patient's . Care plan developed with my supervision; agree with above. Developed pain and pressure to left eye about 15-20 minutes ago (only pain he has complained about). Slight nasal congestion. No pain with breathing or ab pain. has met with hospice. She and family in agreement that hospice care the correct way to proceed. Lungs: decreased, no distress CV: regular AB: soft nt/nd Plan: Will add low dose MS (0.5-1mg) IV every 1 hour as needed for pain. Course of Rocephin and Diflucan competed-will stop these medications. As anticipating hospice care, will not pursue feeding tube. Patient's care needs currently too much for and family to take on at home - CM making arrangements for nursing care with hospice at time of discharge. Continue with TPN for support for now-will wean off tomorrow. Work on treatments to maximize comfort and dignity. Hospital Course Summary Disclaimer: The visit summary below is not to be considered part of the above Progress Note.
[2017-03-12] MEDS: MULTI-VIT INFUSION 10 ML, MULTI-TRACE ELEMENTS 1 ML in TPN - STANDARD FORMULA 2,000 ML IV SCH (17:23)
[2017-03-12] MEDS: FAT EMULSION 20% 100 ML IV SCH (17:24)
[2017-03-12] MEDS ORDERED: MORPHINE SULFATE 2 MG SYRINGE IVP PRN (17:56)
[2017-03-12] MEDS: TRAVOPROST 0.004% EYE DROPS 2.5ml RIGHT EYE SCH (21:28)
[2017-03-13] MEDS: SALINE FLUSH 10ml SYRINGE IVF PRN (05:31)
[2017-03-13] MEDS: PYRIDOSTIGMINE 10 MG/2 ML IV SCH (05:31)
--- NOTE | 2017-03-13 08:37 | Pharmacy Consult-TPN/PPN ---
Pharmacy Consult-TPN/PPN - Laboratory Information Chemistry Turbidity < 20 (0-20) 03/12/17 04:19 Sodium 138 MEQ/L (134-144) 03/12/17 04:19 Potassium 4.2 MEQ/L (3.6-5) 03/12/17 04:19 Chloride 101 MEQ/L (98-107) 03/12/17 04:19 Carbon Dioxide 28 MEQ/L (22-30) 03/12/17 04:19 Anion Gap 9 MEQ/L (5-15) 03/12/17 04:19 BUN 23.0 MG/DL (9-20) H 03/12/17 04:19 Creatinine 0.7 MG/DL (0.8-1.5) L 03/12/17 04:19 GFR Calculation 107 03/12/17 04:19 BUN/Creatinine Ratio 33 RATIO (6-26) H 03/12/17 04:19 Glucose 124 MG/DL (75-110) H 03/12/17 04:19 Glucometer 143 mg/dL (65-110) 03/13/17 05:56 Calculated Osmolality 271 MOSM/KG (261-280) 03/12/17 04:19 Calcium 8.8 MG/DL (8.4-10.2) 03/12/17 04:19 Phosphorus 4.3 MG/DL (2.5-4.5) 03/12/17 04:19 Magnesium 2.3 MG/DL (1.6-2.3) 03/12/17 04:19 Total Bilirubin 0.70 MG/DL (0.20-1.30) 03/12/17 04:19 Icterus Index < 2 (0-7) 03/12/17 04:19 AST 37 U/L (17-59) 03/12/17 04:19 ALT 47 U/L (21-72) 03/12/17 04:19 Alkaline Phosphatase 69 U/L (38-126) 03/12/17 04:19 B-Natriuretic Peptide 1050 pg/mL (0-175) H 03/04/17 14:53 Total Protein 6.5 G/DL (6.3-8.2) 03/12/17 04:19 Albumin 3.2 G/DL (3.5-5.0) L 03/12/17 04:19 Globulin 3.3 G/DL (2.4-3.6) 03/12/17 04:19 Albumin/Globulin Ratio 1.0 RATIO (1.1-2.2) L 03/12/17 04:19 Prealbumin 13.0 MG/DL (17.6-36.0) L 03/04/17 18:20 Plasma Lactate 1.4 MMOL/L (0.6-2.2) 03/04/17 18:20 Vitamin B12 815 PG/ML (239-931) 03/05/17 05:07 Folate 10.2 NG/ML (2.76-20) 03/05/17 05:07 Procalcitonin < 0.05 NG/ML 03/04/17 14:53 TSH 1.10 MIU/L (0.47-4.68) 03/04/17 18:20 Specimen Hemolysis < 15 (0-25) 03/12/17 04:19 Intake and Output 03/12/17 03/13/17 03/14/17 06:59 06:59 06:59 Intake Total 1603.333 / 1603.333 960 / 960 Output Total 100 / 100 400 / 400 Balance 1503.333 / 1503.333 560 / 560 Weight 52.3 kg 51.936 kg Intake: IV 1603.333 / 1603.333 960 / 960 Rocephin 1 G In Normal 100 / 100 100 / 100 Saline 100 ml @ 200 mls/ hr IV Q24H [facility] Rx#: [id number] Intralipid 20% 100 ml @ 100 / 100 100 / 100 50 mls/hr IV 1600 [facility] Rx# :[id number] DIFLUCAN PREMIX 100 mg In 50 / 50 50 / 50 50 ml @ 50 mls/hr IV Q24H [facility] Rx#:[id number] Infuvite Adult 10 ml 1353.333 / 1353.333 710 / 710 Multi-Trace Elements 1 ml In TPN - Standard Formula 2,000 ml @ 70 mls /hr IV .Q24H [facility] Rx#: [id number] Output: Urine 100 / 100 400 / 400 Other: Urine Appearance Clear Clear Urine Color Dark Yellow Dark Yellow Urine Odor Normal Stool Color Brown Stool Consistency Soft Size of Bowel Movement Moderate # Incontinent Voids 1 1 # Incontinent Bowel 1 Movements - Consult Information We will continue same standard TPN formula at the same rate. Thanks
[2017-03-13] MEDS: ENOXAPARIN 30 MG/0.3 ML INJECTION SQ SCH (09:57)
[2017-03-13] MEDS: DORZOLAMIDE 2% EYE DROPS 10ml RIGHT EYE SCH ×2 (09:58→22:02)
[2017-03-13] MEDS: BRIMONIDINE 0.15% RIGHT EYE SCH ×2 (09:58→22:03)
[2017-03-13] MEDS: EYE RIGHT EYE SCH ×2 (09:58→22:03)
[2017-03-13] MEDS: PANTOPRAZOLE 40 MG INJECTION IVP SCH (10:01)
[2017-03-13] MEDS: ASPIRIN 300 MG RECTAL SUPPOSITORY RECTALLY SCH (12:08)
--- NOTE | 2017-03-13 13:50 | Progress Note ---
Subjective: F/U: Severe dysphagia Resting comfortably in bed with at bedside. Less responsive today- notes he has been sleeping more. Not been complaining of pain/discomfort. IV MS added last night, but pt has not received any doses. Maintaining saturations on room air. Objective Vital signs: Temperature 96.4 F L 03/13/17 12:14 Pulse Rate 84 03/13/17 12:14 Respiratory Rate 20 03/13/17 12:14 Blood Pressure 122/62 03/13/17 12:14 Pulse Oximetry 97 03/13/17 12:14 Oxygen Delivery Method Room Air Height/Weight/BMI: Height 1.6 m Weight 51 kg Body Mass Index 20.3 - Constitutional Present: well developed, thin, somnolent - Routine HEENT Exam Head: Present: normocephalic, atraumatic ENT: Present: mucous membranes dry - Routine Respiratory Exam Present: decreased breath sounds, distant breath sounds, diminished air movement. Absent: respiratory distress, wheezes, crackles - Routine Cardiovascular Exam Present: RRR - Routine Abdominal Exam Present: soft, normoactive bowel sounds, non distended, non tender - Routine Extremities Exam Present: pulses intact. Absent: edema - Routine Musculoskeletal Exam Musculoskeletal: Present: no clubbing or cyanosis - Routine Psychiatric Exam Present: unable to assess (Somnolent during exam. ) Results - Labs CBC & Chem 7: 03/12/17 04:19 03/12/17 04:19 Assessment and Plan (1) Hypernatremia Current visit: Yes Status: Resolved DVT Prophylaxis: SCD's Resuscitation Status: Do Not Resuscitate Assessment and Plan: Assessment Severe dehydration with hypernatremia, POA (Na 155) - resolved Elevated lactate- Empiric Ceftriaxone x 7 days with improvement. Leukocytosis; macrocytosis Significant oropharyngeal dysphagia, nothing by mouth therapeutic diet recommended. 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 dementia Plan Anticipating discharge to Hospice care. Will stop TPN today-decrease rate in half and discontinue when current bag done. Will stop Mestinon as continue use futile. Stop Lovenox and rectal ASA for comfort measures. No further lab draws. MS available as needed for pain/air hunger. Will have prn lorazepam available. Discharge to nursing facility when arrangements can be made-patient's care needs at this time greater than what his could handle at home. Emotional support given to - Time spent with patient 25 - 35 minutes Sepsis Assessment - Evaluation Sepsis screening result: No Definite Risk Hospital Course Summary Disclaimer: The visit summary below is not to be considered part of the above Progress Note. Hospital Course: 03/04/17 ADMIT - start D5 1/2 NS; consult speech therapy. MRI brain ordered. Additional labs ordered. 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 Potassium decreased with hydration, and the telehospitalist added potassium to IV fluids. K has improved to 3.4. Clinically still looks markedly dry. If his rigidity does not improve, consider neurologic consultation. Awaiting speech therapy recommendations. Also, would recommend dietary consultation, once we know what his safest diet will be. He has mild protein calorie malnutrition. Prerenal azotemia is improving with hydration. Bilirubin actually increased slightly to 1.6. Lactate has trended down to normal. MRI brain was obtained, and this shows a subtle irregularity that could be a small stroke to the right MCA territory, but the exam is limited by motion artifact, and this abnormality could not be confirmed on alternate images. TSH was normal at 1.10. Consult wound team for recommendations on treatment for his coccygeal pressure ulcers. 03/06/17 Patient continues to have altered mental status, rigidity. Given persistent leukocytosis, I am going to start empiric Ceftriaxone. He is not acutely febrile, so less likely systemic infection or acute viral encephalopathy. PICC line was placed and TPN was started. Possible small stroke on MRI, but somewhat limited exam. Could consider Rectal ASA if family desires more aggressive care. 03/07/17 Dehydration and electrolyte abnormalities have resolved, the patient continues to have profound dysphagia and weakness. Continue TPN through PICC. Suction oral cavity PRN. Start Protonix IV. Anticipate evaluation by Dr. Villa today. Discussed options for ongoing care with [facility] . She is not sure if a feeding tube is the way to go, though doesn't know if she's ready for hospice ( this all came on so suddenly). Continue Rocephin day #2 for persistent leukocytosis. Blood and urine cultures remain negative after 2 days. 03/08/17 Continue speech therapy and TPN. Na level is now low-normal at 136; remainder of electrolytes are stable. Hyperglycemia secondary to TPN - overall well controlled with only a couple isolated readings above 180. Continue Mestinon per Dr. Villa's recommendations. VS have been stable. Leukocytosis has resolved. Continue Rocephin day #3. CXR this am did not show evidence of pneumonia. Left PICC line was in stable position. Left sacrum wound - evaluated by wound clinic RN. Pt is known to the clinic for management of this pressure wound. 03/09/17 Continues on TPN for nutrition, blood sugars controlled. Consulted with speech, PT and OT. Mestinon as recommended by Dr. Villa's to help with muscle weakness. 03/10/17 Extensive discussion with patient and his regarding goals of care. The patient is leaning on comfort care/hospice rather than having a feeding tube. He will continue to think about it and talk to his and his son when he arrives. Continue Mestinon and therapy. Improvement noted. Leukocytosis has resolved. White count is 8.8. Chemistries are stable. Today's date #5 of Rocephin. We have not identified any source of infection to explain his fairly persistent leukocytosis, which has resolved. Consider discontinuing empiric antibiotics after today's dose. Will discuss in further detail with Dr. Tobias. 03/12/17 Will DC ceftriaxone after today's dose (d#7). Can DC Diflucan. All cultures negative. Mestinon to be continued due to improvements in weakness per Dr. Garcia's recommendations. Unlikely to be MS or MG, but reasonable to continue therapy given improvement. Pt. continues to demonstrate significant dysphagia- plan of care being discussed is PEG vs. Hospice. Continue Rectal ASA given concern for stroke. Continue PT/OT. Await son to arrive for further plan of care discussion. Family did decide on Hospice care. Will add MS for pain. 8/27/17 Anticipating discharge to Hospice care. Will stop TPN today-decrease rate in half and discontinue when current bag done. Will stop Mestinon as continue use futile. Stop Lovenox and rectal ASA for comfort measures. No further lab draws. MS available as needed for pain/air hunger. Will have prn lorazepam available. Discharge to nursing facility when arrangements can be made-patient's care needs at this time greater than what his could handle at home. Emotional support given to
[2017-03-13] MEDS: FAT EMULSION 20% 100 ML IV SCH (16:12)
[2017-03-13 20:24] VITALS: RESP 18
[2017-03-13] MEDS: TRAVOPROST 0.004% EYE DROPS 2.5ml RIGHT EYE SCH (22:04)
[2017-03-14] MEDS: SALINE FLUSH 10ml SYRINGE IVF PRN (05:15)
[2017-03-14 07:51] VITALS: TEMP 97.6
[2017-03-14] MEDS: BRIMONIDINE 0.15% RIGHT EYE SCH (08:25)
[2017-03-14] MEDS: EYE RIGHT EYE SCH (08:25)
[2017-03-14] MEDS: DORZOLAMIDE 2% EYE DROPS 10ml RIGHT EYE SCH (08:25)
[2017-03-14] MEDS ORDERED: NEOMYCIN/POLYMYXIN/BACITRACIN OINT PACKET TP ONE (10:32)
--- NOTE | 2017-03-14 10:41 | Progress Note ---
Subjective: F/U: Severe dysphagia Sitting up in chair. Looks tired and weak, but will interact verbally. Voice weak. Denies pain or discomfort. Not feeling SOA or congested; no difficulty breathing. No doses of MS or lorazepam have been given. Family at bedside. CM has made arrangements for hospice care with [facility] at . Objective Vital signs: Temperature 97.6 F 03/14/17 07:50 Pulse Rate 84 03/14/17 08:00 Respiratory Rate 18 03/14/17 07:50 Blood Pressure 132/65 03/14/17 07:50 Pulse Oximetry 95 03/14/17 07:55 Oxygen Delivery Method Room Air Height/Weight/BMI: Height 1.6 m Weight 51 kg Body Mass Index 20.3 - Constitutional Present: no acute distress, well developed, thin - Routine HEENT Exam Head: Present: normocephalic, atraumatic ENT: Present: mucous membranes dry - Routine Respiratory Exam Present: CTA bilaterally. Absent: respiratory distress, wheezes, crackles - Routine Cardiovascular Exam Present: RRR - Routine Abdominal Exam Present: soft, normoactive bowel sounds, non distended - Routine Extremities Exam Present: no edema. Absent: cyanosis, clubbing - Routine Musculoskeletal Exam Musculoskeletal: Present: no clubbing or cyanosis - Routine Skin Exam Present: dry, warm - Routine Neurological Exam Present: motor deficit (weak motor function in general ), hearing grossly intact - Routine Psychiatric Exam Absent: anxious, agitated Results - Labs CBC & Chem 7: 03/12/17 04:19 03/12/17 04:19 Assessment and Plan (1) Hypernatremia Current visit: Yes Status: Resolved DVT Prophylaxis: SCD's Resuscitation Status: Do Not Resuscitate Assessment and Plan: Assessment Hypernatremia, POA (Na 155) - resolved. Secondary to severely decreased oral intake due to significant dysphagia. Significant oropharyngeal dysphagia, nothing by mouth therapeutic diet recommended. 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 dementia Plan Arrangements made for discharger to with [facility] care. Terminal condition: severe dysphagia refractory to treatments. Compounding conditions: dementia. Anticipated live expectancy: days. Discussed with speech this morning. Really no diet is safe for him. May have oral swabs as needed for oral comfort. Thickened juices/liquids at patient request. Hospice will help with pain and symptom control. DNR - no resuscitation. May follow with Dr Persaud in 1 week for medical care. Emotional support to family. Case discuss with CM, Speech, and family. Times spent with care and discharge greater than 30 minutes. - Time spent with patient discharge greater than 30 minutes Sepsis Assessment - Evaluation Sepsis screening result: No Definite Risk Hospital Course Summary Disclaimer: The visit summary below is not to be considered part of the above Progress Note. Hospital Course: 03/04/17 ADMIT - start D5 1/2 NS; consult speech therapy. MRI brain ordered. Additional labs ordered. 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 Potassium decreased with hydration, and the telehospitalist added potassium to IV fluids. K has improved to 3.4. Clinically still looks markedly dry. If his rigidity does not improve, consider neurologic consultation. Awaiting speech therapy recommendations. Also, would recommend dietary consultation, once we know what his safest diet will be. He has mild protein calorie malnutrition. Prerenal azotemia is improving with hydration. Bilirubin actually increased slightly to 1.6. Lactate has trended down to normal. MRI brain was obtained, and this shows a subtle irregularity that could be a small stroke to the right MCA territory, but the exam is limited by motion artifact, and this abnormality could not be confirmed on alternate images. TSH was normal at 1.10. Consult wound team for recommendations on treatment for his coccygeal pressure ulcers. 03/06/17 Patient continues to have altered mental status, rigidity. Given persistent leukocytosis, I am going to start empiric Ceftriaxone. He is not acutely febrile, so less likely systemic infection or acute viral encephalopathy. PICC line was placed and TPN was started. Possible small stroke on MRI, but somewhat limited exam. Could consider Rectal ASA if family desires more aggressive care. 03/07/17 Dehydration and electrolyte abnormalities have resolved, the patient continues to have profound dysphagia and weakness. Continue TPN through PICC. Suction oral cavity PRN. Start Protonix IV. Anticipate evaluation by Dr. Villa today. Discussed options for ongoing care with Jeff's . She is not sure if a feeding tube is the way to go, though doesn't know if she's ready for hospice ( this all came on so suddenly). Continue Rocephin day #2 for persistent leukocytosis. Blood and urine cultures remain negative after 2 days. 03/08/17 Continue speech therapy and TPN. Na level is now low-normal at 136; remainder of electrolytes are stable. Hyperglycemia secondary to TPN - overall well controlled with only a couple isolated readings above 180. Continue Mestinon per Dr. Villa's recommendations. VS have been stable. Leukocytosis has resolved. Continue Rocephin day #3. CXR this am did not show evidence of pneumonia. Left PICC line was in stable position. Left sacrum wound - evaluated by wound clinic RN. Pt is known to the clinic for management of this pressure wound. 03/09/17 Continues on TPN for nutrition, blood sugars controlled. Consulted with speech, PT and OT. Mestinon as recommended by Dr. Villa's to help with muscle weakness. 03/10/17 Extensive discussion with patient and his regarding goals of care. The patient is leaning on comfort care/hospice rather than having a feeding tube. He will continue to think about it and talk to his and his son when he arrives. Continue Mestinon and therapy. Improvement noted. Leukocytosis has resolved. White count is 8.8. Chemistries are stable. Today's date #5 of Rocephin. We have not identified any source of infection to explain his fairly persistent leukocytosis, which has resolved. Consider discontinuing empiric antibiotics after today's dose. Will discuss in further detail with Dr. Tobias. 03/12/17 Will DC ceftriaxone after today's dose (d#7). Can DC Diflucan. All cultures negative. Mestinon to be continued due to improvements in weakness per Dr. Garcia's recommendations. Unlikely to be MS or MG, but reasonable to continue therapy given improvement. Pt. continues to demonstrate significant dysphagia- plan of care being discussed is PEG vs. Hospice. Continue Rectal ASA given concern for stroke. Continue PT/OT. Await son to arrive for further plan of care discussion. Family did decide on Hospice care. Will add MS for pain. 03/13/17 Anticipating discharge to Hospice care. Will stop TPN today-decrease rate in half and discontinue when current bag done. Will stop Mestinon as continue use futile. Stop Lovenox and rectal ASA for comfort measures. No further lab draws. MS available as needed for pain/air hunger. Will have prn lorazepam available. Discharge to nursing facility when arrangements can be made-patient's care needs at this time greater than what his could handle at home. Emotional support given to 03/14/17 Arrangements made for discharger to with [facility] care. Terminal condition: severe dysphagia refractory to treatments. Compounding conditions: dementia. Anticipated live expectancy: days. Discussed with speech this morning. Really no diet is safe for him. May have oral swabs as needed for oral comfort. Thickened juices/liquids at patient request. Hospice will help with pain and symptom control. DNR - no resuscitation. May follow with Dr Persaud in 1 week for medical care if desired. Emotional support to family.
--- NOTE | 2017-03-14 10:59 | Discharge Summary ---
Discharge Information Date of admission: 03/04/17 16:45 Anticipated date of discharge: 03/14/17 Attending Physician: Fay Tobias MD Primary care physician: Nick Persaud II, MD Consults: 03/04/17 Wound [facility]in Clinic Consult: Reason for consultation: coccyx wounds/pressure ulcers 03/04/17 Dietary Consult 03/05/17 Pharmacy Consult: PPN 03/06/17 15:03 Physician Consult: Tawny Villa Reason For Exam: weakness, dysphagia 03/08/17 Consulting Provider: Clare Sofia Reason For Exam: CONTINUED CARE PT/OT/SPEECH - Discharge Diagnosis Discharge Diagnosis: Hypernatremia, POA (Na 155) - resolved. Secondary to severely decreased oral intake due to significant dysphagia. Associated conditions and complications Significant oropharyngeal dysphagia, nothing by mouth therapeutic diet recommended. Elevated lactate - resolved; No evidence of infectious source found. 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 Not clinically related to patient's swallow dysfunction. - Procedures Procedures: Date of Exam: 03/09/17 Type of Exam: FL barium swallow modified Videofluoroscopy was performed in conjunction with a independent sales representative from speech pathology and a separate report and recommendations will be provided. Thin and nectar consistencies of barium were administered. Delayed aspiration was visualized with nectar consistency barium. Immediate aspiration was noted with thin consistency. The exam was stopped at this point. No AP imaging was obtained. Impression: Aspiration with thin and nectar consistencies of barium. No other consistencies were administered. Please see the speech pathology report for additional details and recommendations. 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 History of Present Illness HPI: "Sanjeev Barboza is an 86 y/o male who lives at home with his . He has had a sudden decrease in his appetite x1 week, and his reports that the only thing that he has consistently eaten is jello and watermelon. When he swallows, it's as if the food gets caught in his throat. He has become so weak that he can barely get up anymore. No recent weight loss. They both deny any falls or trauma. She states that he's had some mild underlying confusion x3 years but it hasn't been worse recently. He has poor circulation but no swelling or leg pain. On January 25, 2017, he was treated with Bactrim x14 days for a UTI (no culture); then following this Dr. Cabrera put him on a course of Diamox for increased eye pressures. Mrs. Barboza called the office and Diamox was discontinued several days ago. Jeff denies recent fever or chills, cough, congestion, dizziness, paresthesias, or unilateral weakness. He denies chest pain or SOA. He presented to [facility] ED on 03/04/17. Labs showed a markedly elevated sodium at 155. CT head was unremarkable. He also had leukocytosis with WBC of 13.9. Lactate was elevated without a clear source of infection. Renal function was intact. He received 1L NS in the ED, and the hospitalist service was contacted for inpatient admission. For complete details of the H&P refer to that document. Objective Vital signs: Temperature 97.6 F 03/14/17 07:50 Pulse Rate 84 03/14/17 08:00 Respiratory Rate 18 03/14/17 07:50 Blood Pressure 132/65 03/14/17 07:50 Pulse Oximetry 95 03/14/17 07:55 Oxygen Delivery Method Room Air Height/Weight/BMI: Height 1.6 m Weight 51 kg Body Mass Index 20.3 Hospital Course This is a general summary of the patient's hospital course. For more details refer to the complete medical record. Hospital course: 03/04/17 ADMIT - start D5 1/2 NS; consult speech therapy. MRI brain ordered. Additional labs ordered. 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 Potassium decreased with hydration, and the telehospitalist added potassium to IV fluids. K has improved to 3.4. Clinically still looks markedly dry. If his rigidity does not improve, consider neurologic consultation. Awaiting speech therapy recommendations. Also, would recommend dietary consultation, once we know what his safest diet will be. He has mild protein calorie malnutrition. Prerenal azotemia is improving with hydration. Bilirubin actually increased slightly to 1.6. Lactate has trended down to normal. MRI brain was obtained, and this shows a subtle irregularity that could be a small stroke to the right MCA territory, but the exam is limited by motion artifact, and this abnormality could not be confirmed on alternate images. TSH was normal at 1.10. Consult wound team for recommendations on treatment for his coccygeal pressure ulcers. 03/06/17 Patient continues to have altered mental status, rigidity. Given persistent leukocytosis, I am going to start empiric Ceftriaxone. He is not acutely febrile, so less likely systemic infection or acute viral encephalopathy. PICC line was placed and TPN was started. Possible small stroke on MRI, but somewhat limited exam. Could consider rectal ASA if family desires more aggressive care. 03/07/17 Dehydration and electrolyte abnormalities have resolved, the patient continues to have profound dysphagia and weakness. Continue TPN through PICC. Suction oral cavity PRN. Start Protonix IV. Anticipate evaluation by Dr. Villa today. Discussed options for ongoing care with Jeff's . She is not sure if a feeding tube is the way to go, though doesn't know if she's ready for hospice ( this all came on so suddenly). Continue Rocephin day #2 for persistent leukocytosis. Blood and urine cultures remain negative after 2 days. 03/08/17 Continue speech therapy and TPN. Na level is now low-normal at 136; remainder of electrolytes are stable. Hyperglycemia secondary to TPN - overall well controlled with only a couple isolated readings above 180. Continue Mestinon per Dr. Villa's recommendations. VS have been stable. Leukocytosis has resolved. Continue Rocephin day #3. CXR this am did not show evidence of pneumonia. Left PICC line was in stable position. Left sacrum wound - evaluated by wound clinic RN. Pt is known to the clinic for management of this pressure wound. 03/09/17 Continues on TPN for nutrition, blood sugars controlled. Consulted with speech, PT and OT. Mestinon as recommended by Dr. Villa's to help with muscle weakness. 03/10/17 Extensive discussion with patient and his regarding goals of care. The patient is leaning on comfort care/hospice rather than having a feeding tube. He will continue to think about it and talk to his and his son when he arrives. Continue Mestinon and therapy. Improvement noted. Leukocytosis has resolved. White count is 8.8. Chemistries are stable. Today's date #5 of Rocephin. We have not identified any source of infection to explain his fairly persistent leukocytosis, which has resolved. Consider discontinuing empiric antibiotics after today's dose. Will discuss in further detail with Dr. Tobias. 03/12/17 Will DC ceftriaxone after today's dose (d#7). Can DC Diflucan. All cultures negative. Mestinon to be continued due to improvements in weakness per Dr. Garcia's recommendations. Unlikely to be MS or MG, but reasonable to continue therapy given improvement. Pt. continues to demonstrate significant dysphagia- plan of care being discussed is PEG vs. Hospice. Continue Rectal ASA given concern for stroke. Continue PT/OT. Await son to arrive for further plan of care discussion. Family did decide on Hospice care. Will add MS for pain. 03/13/17 Anticipating discharge to Hospice care. Will stop TPN today-decrease rate in half and discontinue when current bag done. Will stop Mestinon as continue use futile. Stop Lovenox and rectal ASA for comfort measures. No further lab draws. MS available as needed for pain/air hunger. Will have prn lorazepam available. Discharge to nursing facility when arrangements can be made-patient's care needs at this time greater than what his could handle at home. Emotional support given to 03/14/17 Arrangements made for discharger to with [facility] care. Terminal condition: severe dysphagia refractory to treatments. Compounding conditions: dementia. Anticipated live expectancy: days. Discussed with speech this morning. Really no diet is safe for him. May have oral swabs as needed for oral comfort. Thickened juices/liquids at patient request. Hospice will help with pain and symptom control. Continued treatments for medical conditions not indicated at this time due to very limited life expectancy and futility of any treatments. DNR - no resuscitation. May follow with Dr Persaud in 1 week for medical care if desired. Emotional support to family. Time spent with patient: discharge greater than 30 minutes DVT Prophylaxis: SCD's, Lovenox GI Prophylaxis: Protonix Discharge Plan - Med Rec/Dispo Referrals/Follow Up: Nick Persaud II, MD [Family Provider] - 1 Week (Patient on Hospice care at . May follow up with patient in 1 week if desired. Patient likely not be physically able to leve facility. ) Prescriptions: New Acetaminophen Supp [Tylenol Supp] 650 mg AK Q5H PRN supp PRN Reason: Pain Continue Travoprost 0.004% Eye Drops [Travatan Z] 1 drop BOTH EYES HS #0 Brimonidine Tartrate [Alphagan P] 1 drop RIGHT EYE BID Dorzolamide Eye Drops [Trusopt] 1 drop BOTH EYES BID #0 Discontinued Aspirin [Aspir 81] 81 mg PO DAILY #30 tab acetaZOLAMIDE [Diamox Sequels] 500 mg PO DAILY Discharge Instructions/Outpatient Orders: Final Provider Discharge Instructions Location: Determined By Patient - Disposition 04 To [facility] Home/Facility - Attestation Attestation Narrative: 03/14/17 11:23 I have independently interviewed and examined prior to discharge. See my progress note from today for details. Medically stable for discharge to hospice care.
--- NOTE | 2017-03-14 11:38 | Extended Care Facility Orders ---
Admission Orders Admit to:: ICF, Hospice Allergies/Adverse Reactions: Allergies No Known Drug Allergies Allergy (Unknown, Verified 03/04/17 17:49) Admitting Diagnosis: Severe dysphagia Admitting Physician: Dr Loya Attending Physician: Dr Persaud Code Status: Do Not Resuscitate Anticiapted Length of Stay: 30 days or less Rehab Potential: poor Rehab Prognosis: poor Diet: NPO diet. Really, there is no 'safe' diet options for Mr Barboza do to his severe dysphagia. May have oral swabs for comfort measures. May have Mazie thicken juices/liquids at patient's request. May use Facility Protocol or Standing Orders: Yes May have flu vaccine: Yes Care Home Certification: I certify that SNF services are required to be given on an Inpatient basis because of the patients need for half-way care on a continuing basis for the condition(s) for which he/she received inpatient hospital services prior to his/her transfer to the SNF. SNF inpatient care is necessary for the following reasons Indication for Care Home: Not Applicable (Patient on hospice with [facility] ) - Additional Information In Event of Arrest: Do Not Start CPR Resident is Aware of Diagnosis: No (Dementia limits) Referrals: Nick Persaud II, MD [Family Provider] - 1 Week (Patient on Hospice care at . May follow up with patient in 1 week if desired. Patient likely not be physically able to leve facility. ) Additional Orders: [facility] to initate care upon patient's arrival. [facility] to initate pain and symptom control medications. Comfort care measures. Condition terminal. Life expectancy: Days. Activites as patient desires and tolerates. Suction as needed for secretion control. Oxygen as needed for hypoxia (has not been requiring O2 during hospitalization, but needs may arrise). May follow up with Dr Persaud in 1 week only if desired - anticipate patient not being able to leave facility.
[2017-03-14 12:04] VITALS: BP 142/87; PULSE 89; O2SAT 97
== END 2017-03-14 13:10 | disposition hospice, home (50) | DRG 641 ==
LOC: ED 13:45 → MED 16:45
PROVIDERS: ADMIT Internal Medicine; ATTEND Internal Medicine